=== PATIENT | male | born 1945 | race Caucasian/White ===

== ENCOUNTER 2016-03-18 08:50 | Outpatient (CLI) | payer MEDICARE, OTHER | END 2016-03-18 08:51 | disposition home or self-care (01) | DX: E78.5 Hyperlipidemia, unspecified (principal); D64.9 Anemia, unspecified; R73.9 Hyperglycemia, unspecified; Z79.899 Other long term (current) drug therapy ==

== ENCOUNTER 2016-06-21 11:55 | Emergency (ER) | payer MEDICARE, OTHER ==
[2016-06-21] MEDS ORDERED: oxyCODONE 5 MG TABLET ONE (12:14)
[2016-06-21] MEDS: oxyCODONE 5 MG TABLET PO STA (12:15)
--- NOTE | 2016-06-21 12:36 | ED Physician Documentation ---
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 denies: Neck pain Neurologic: denies: Focal weakness, Numbness (except fingrtips 2/2 neuropathy not new), Headache, Head injury Endocrine: denies: Easy bruising / bleeding PD PAST MEDICAL HISTORY - Past Medical History Cardiovascular: Hypertension, High cholesterol Respiratory: Sleep apnea, CPAP use Endocrine/Autoimmune: None GI: GERD, Colon polyps : Other HEENT: None Psych: None, Anxiety Musculoskeletal: Osteoarthritis Derm: Other - Past Surgical History Past Surgical History: Yes General: Colonoscopy Ortho: Rotator cuff repair HEENT: Cataracts Derm: Other - Present Medications Home Medications: Ambulatory Orders Medication Instructions Recorded Confirmed Simvastatin [Zocor] 20 mg PO QPM 02/17/14 06/21/16 Tamsulosin [Flomax] 0.4 mg PO DAILY 09/25/14 10/29/15 Atezolizumab [Tecentriq] 1,200 mg INJ 1-2XD 06/21/16 06/21/16 Bupropion HCl [Bupropion HCl Sr] 150 mg PO DAILY 06/21/16 06/21/16 Esomeprazole Magnesium [Nexium] 40 mg PO DAILY 06/21/16 06/21/16 Gabapentin [Gabapentin] 600 mg PO TID 06/21/16 06/21/16 Oxycodone HCl/Acetaminophen 1 each PO Q6HR PRN #15 tablet 06/21/16 [Percocet 5-325 mg Tablet] Telmisartan [Micardis] 80 mg PO DAILY 06/21/16 06/21/16 - Allergies Allergies/Adverse Reactions: Allergies Allergy/AdvReac Type Severity Reaction Status Date / Time Iodinated Contrast Media - Allergy Hives Verified 06/21/16 12:09 Oral and [Iodinated Contrast Media - IV Dye] LIVIA Inhibitors AdvReac Intermediate Cough Verified 06/21/16 12:09 Shrimp/Crustations AdvReac Severe Nausea Uncoded 06/21/16 12:09 - Social History Does the pt smoke?: No Smoking Status: Former smoker PD ED PE NORMAL - Vitals Vital signs reviewed: Yes - Neck Neck: No bony TTP - Cardiac Cardiac: RRR - Respiratory Respiratory: No respiratory distress, Clear bilaterally - Extremities Extremities: Other (no major deformity, slight ant sulcus, TTP distal clavicle, TTP lateral humerus, MSV intact) - Neuro Neuro: Alert and oriented X 3, No motor deficit, No sensory deficit Results - Vitals Vitals: Vital Signs - 24 hr 06/21/16 06/21/16 06/21/16 12:01 13:45 13:58 Temperature 36.5 C Heart Rate 91 88 87 Respiratory 20 14 14 Rate Blood Pressure 106/48 L 119/55 L O2 Saturation 94 92 95 06/21/16 06/21/16 06/21/16 14:01 14:05 14:10 Temperature Heart Rate 88 84 86 Respiratory 12 16 12 Rate Blood Pressure 94/72 105/66 112/62 O2 Saturation 92 97 96 06/21/16 06/21/16 06/21/16 14:15 14:20 14:46 Temperature 36.7 C Heart Rate 83 88 92 Respiratory 16 18 14 Rate Blood Pressure 121/57 L 118/63 122/69 O2 Saturation 96 97 97 Oxygen O2 Source Room air Oxygen Flow Rate 3 - Rads (name of study) shoulder humerus Radiology: See rad report (ant dislocation, linear calcification possible very small avulsion fx) shoulder post red Radiology: See rad report (reduced, no fx) Procedures - Reduction Body part reduced: Left, Shoulder Fracture or dislocation: Dislocation Anesthesia: Conscious sedation Shoulder reduction technique: Traction - counter tract Reduction aftercare: NV intact, Xray confirms reduction, Sling, Patient tolerated well - Procedural sedation Sedation prep: Informed consent, Time out completed, Last meal (9), PE performed , AHA 2 - mild disease Sedation medications: dilaudid, propofol, given by MD Patient status during sedation: Responds to tactile, Hypoxia (high 80s briefly) . No: Needed resp assistance, Complications Sedation recovery: Recovered uneventfully Departure - Departure Disposition: 01 Home, Self Care Clinical Impression: Shoulder dislocation Qualifiers: Encounter type: initial encounter Laterality: left Qualified Code(s): S43.005A - Unspecified dislocation of left shoulder joint, initial encounter Condition: Good Instructions: ED Dislocation Shoulder Redu, ED Sedation Procedural Discon Follow-Up: [facility] [Provider Group] Prescriptions: Oxycodone HCl/Acetaminophen [Percocet 5-325 mg Tablet] 1 each PO Q6HR PRN #15 tablet PRN Reason: Severe Pain Comments: Wear the sling except to sleep. After the first day or two recommend gentle range of motion exercises to prevent the shoulder joint from developing scar tissue and adhesions - but do not lift arm up over your head or reach behind you
[2016-06-21] MEDS ORDERED: HYDROmorphone 1 MG/ML SYRINGE ONE ×2 (12:38→13:44)
[2016-06-21] MEDS: HYDROmorphone 1 MG/ML SYRINGE IM STA (12:42)
--- NOTE | 2016-06-21 13:39 | XRAY Preliminary Report ---
Exam: XR Shoulder 3 View LT IMPRESSION: 1. Anterior dislocation of the left shoulder. 2. Small linear calcification is indeterminate for a very small avulsion acute fracture versus sequel a of old injury. [facility] SITE ID: [id number]
--- NOTE | 2016-06-21 13:41 | XRAY Preliminary Report ---
Exam: XR Humerus LT IMPRESSION: Anterior dislocation of left shoulder. No mid to distal humerus fracture. [facility] SITE ID: [id number]
--- NOTE | 2016-06-21 13:42 | XRAY Report ---
EXAM: LEFT SHOULDER RADIOGRAPHY EXAM DATE: 06/21/2016 01:29 PM. CLINICAL HISTORY: Tripped and fell. Shoulder injury and deformity COMPARISON: Chest x-ray 04/04/2015.. TECHNIQUE: 3 views. FINDINGS: Bones: There is a linear calcification projecting lateral to the bony glenoid. There is a chronic def ormity of the lateral left clavicle with associated spurring which appears unchanged. Joints: There is anterior dislocation of the humerus at the glenohumeral joint. There is chronic wide minoo, likely secondary to old trauma or surgery of the lateral clavicle. Soft tissues: Otherwise unremarkable. IMPRESSION: 1. Anterior dislocation of the left shoulder. 2. Small linear calcification is indeterminate for a very small avulsion acute fracture versus sequel a of old injury. [facility] Referring Provider Line: [phone] SITE ID: [id number]
--- NOTE | 2016-06-21 13:43 | XRAY Report ---
EXAM: LEFT HUMERUS RADIOGRAPHY EXAM DATE: 06/21/2016 01:29 PM. CLINICAL HISTORY: Fall . COMPARISON: None. TECHNIQUE: 2 views. FINDINGS: Bones: No fracture of the mid and distal humerus. There is a linear calcification lateral to the bony glenoid. Joints: There is anterior dislocation of the left shoulder. Alignment at the elbow appears satisfacto ry. Soft Tissues: Normal. No soft tissue swelling. IMPRESSION: Anterior dislocation of left shoulder. No mid to distal humerus fracture. [facility] Referring Provider Line: [phone] SITE ID: [id number]
[2016-06-21] MEDS ORDERED: PROPOFOL 200 MG/20 ML VIAL IVP ONE (13:44)
[2016-06-21] MEDS ORDERED: PROMETHAZINE 25 MG/1 ML VIAL ONE (13:44)
[2016-06-21] MEDS: HYDROmorphone 1 MG/ML SYRINGE IVP STA (13:49)
[2016-06-21] MEDS: PROMETHAZINE INJ 25 MG in SODIUM CHLORIDE 0.9% 50 ML IV STA (13:51)
[2016-06-21] MEDS: PROPOFOL 200 MG/20 ML VIAL IVP STA (13:58)
--- NOTE | 2016-06-21 14:49 | XRAY Report ---
EXAM: LEFT SHOULDER RADIOGRAPHY EXAM DATE: 06/21/2016 02:20 PM. CLINICAL HISTORY: Shoulder dislocation. Post reduction image. COMPARISON: Earlier today. TECHNIQUE: 1 views. FINDINGS: Bones: No new bony abnormality of the left shoulder on single view. Chronic changes of the acromiocla vicular joint. Joints: Satisfactory alignment on single view post reduction of left shoulder. Soft tissues: The visualized hemithorax is unremarkable. No soft tissue swelling. IMPRESSION: Satisfactory alignment of left shoulder on single view. JOSETTE Referring Provider Line: [phone] SITE ID: [id number]
[2016-06-21 15:39] VITALS: BP 118/66
== END 2016-06-21 15:38 | disposition home or self-care (01) ==
LOC: ED 11:55
DX: S43.085A Other dislocation of left shoulder joint, initial encounter (principal); W01.198A Fall on same level from slipping, tripping and stumbling with subsequent striking against other object, initial encounter; Y92.017 Garden or yard in single-family (private) house as the place of occurrence of the external cause; I10 Essential (primary) hypertension; E78.00 Pure hypercholesterolemia, unspecified; G47.30 Sleep apnea, unspecified; K21.9 Gastro-esophageal reflux disease without esophagitis; Z86.010 Personal history of colon polyps; M19.90 Unspecified osteoarthritis, unspecified site; Z87.891 Personal history of nicotine dependence
CPT/HCPCS: 23650; 96365; 96372; 99152; 99283

== ENCOUNTER 2016-07-10 10:37 | Outpatient (CLI) | payer MEDICARE, OTHER | END 2016-07-10 10:38 | disposition home or self-care (01) | DX: M19.012 Primary osteoarthritis, left shoulder (principal); M25.412 Effusion, left shoulder ==

== ENCOUNTER 2018-08-02 14:00 | Inpatient (IN) | payer MEDICARE, OTHER ==
[2018-08-02 14:28] LABS: BASOPHILS # (AUTO) 0.1 10^3/uL (0.0-0.1); BASOPHILS % (AUTO) 0.8 %; EOSINOPHILS # (AUTO) 0.1 10^3/uL (0.0-0.7); EOSINOPHILS % (AUTO) 0.9 %; HGB - HEMOGLOBIN 12.2 g/dL (14.0-18.0); LYMPHOCYTES # (AUTO) 1.4 10^3/uL (1.5-3.5); LYMPHOCYTES % (AUTO) 8.2 %; MEAN CORPUSCULAR HEMOGLOBIN 29.7 pg (27.0-31.0); MEAN CORPUSCULAR HGB CONC 32.7 g/dL (32.0-36.0); MEAN CORPUSCULAR VOLUME 90.9 fL (80.0-94.0); MEAN PLATELET VOLUME 6.6 fL (7.4-11.4); MONOCYTES # (AUTO) 1.6 10^3/uL (0.0-1.0); MONOCYTES % (AUTO) 9.9 %; NEUTROPHILS # (AUTO) 13.4 10^3/uL (1.5-6.6); NEUTROPHILS % (AUTO) 80.2 %; PLT - PLATELET COUNT 345 10^3/uL (130-450); RED BLOOD COUNT 4.09 10^6/uL (4.70-6.10); RED CELL DISTRIBUTION WIDTH 15.5 % (12.0-15.0); WHITE BLOOD COUNT 16.7 x10^3/uL (4.8-10.8)
[2018-08-02 14:42] LABS: ALBUMIN 3.9 g/dL (3.2-5.5); ALBUMIN/GLOBULIN RATIO 1.1 (1.0-2.2); BILIRUBIN,TOTAL 0.6 mg/dL (0.2-1.0); CALCIUM 9.8 mg/dL (8.5-10.3); CREATININE 2.1 mg/dL (0.6-1.2); TOTAL PROTEIN 7.5 g/dL (6.7-8.2)
[2018-08-02 14:49] LABS: BILIRUBIN,URINE NEGATIVE (NEGATIVE); GLUCOSE, URINE (UA) NEGATIVE (NEGATIVE); KETONES,URINE (UA) NEGATIVE (NEGATIVE); LEUKOCYTE ESTERASE, URINE MODERATE (NEGATIVE); NITRITE,URINE NEGATIVE (NEGATIVE); OCCULT BLOOD,URINE MODERATE (NEGATIVE); PROTEIN,URINE 100 mg/dL (NEGATIVE); UROBILINOGEN,URINE 0.2 (NORMAL) E.U./dL (NORMAL)
[2018-08-02 14:57] LABS: CLARITY,URINE CLOUDY (CLEAR)
[2018-08-02 14:58] LABS: BACTERIA,URINE Few /HPF (None Seen); SQUAMOUS EPITHELIAL CELL,UR RARE Squamous (<= Few)
[2018-08-02 15:21] LABS: PLATELET ESTIMATE, MANUAL NORMAL (130-450,000) (NORMAL); PLATELET MORPHOLOGY NORMAL APPEARANCE (NORMAL); RBC MORPHOLOGY (MULTIPLE) NORMAL APPEARANCE (NORMAL)
[2018-08-02] MEDS ORDERED: ACETAMINOPHEN 325 MG TABLET PO STA (15:22)
[2018-08-02] MEDS ORDERED: cefTRIAXone 1 GM VIAL IVP STA (15:23)
[2018-08-02] MEDS ORDERED: SODIUM CHLORIDE 0.9% 1,000 ML IV ONE ×2 (15:24)
--- NOTE | 2018-08-02 15:28 | ED Physician Documentation ---
History of Present Illness - Stated complaint Stated Complaint: MALE - Chief complaint Chief Complaint: General - History obtained from History obtained from: Patient, Family - History of Present Illness Timing: Today Pain level max: 4 Pain level now: 4 - Additonal information Additional information: fevers, burning with urination today. 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 Still on immunosuppresive therapy q 3 3weeks. Nothing makes it better or worse. Review of Systems Ten Systems: 10 systems reviewed and negative Constitutional: reports: Fever, Chills Cardiac: denies: Chest pain / pressure Respiratory: denies: Cough GI: denies: Abdominal Pain, Nausea, Vomiting, Diarrhea Skin: denies: Rash Musculoskeletal: denies: Neck pain, Back pain Neurologic: denies: Headache PD PAST MEDICAL HISTORY - Past Medical History Past Medical History: Yes Cardiovascular: Hypertension, High cholesterol Respiratory: Sleep apnea, CPAP use Neuro: None Endocrine/Autoimmune: None GI: GERD, Colon polyps : Other HEENT: None Psych: None, Anxiety Musculoskeletal: Osteoarthritis Derm: Other Other Past Medical History: bladder cancer - Past Surgical History Past Surgical History: Yes General: Colonoscopy Ortho: Rotator cuff repair HEENT: Cataracts Derm: Other - Present Medications Home Medications: Ambulatory Orders Medication Instructions Recorded Confirmed Simvastatin [Zocor] 20 mg PO QPM 02/17/14 08/02/18 Tamsulosin [Flomax] 0.4 mg PO DAILY 09/25/14 08/02/18 Atezolizumab [Tecentriq] 1,200 mg IV Q21D 06/21/16 08/02/18 Telmisartan [Micardis] 80 mg PO DAILY 06/21/16 08/02/18 buPROPion HCl [Bupropion HCl Sr] 150 mg PO BID 06/21/16 08/02/18 Albuterol Sulfate [Albuterol 2 puffs INH Q4H PRN 08/02/18 08/02/18 Sulfate Hfa] Doxycycline Hyclate 100 mg PO BIDWM 08/02/18 08/02/18 Levothyroxine Sodium [Synthroid] 200 mcg PO QDAC 08/02/18 08/02/18 Niacin [Niaspan] 500 mg PO TIDWM 08/02/18 08/02/18 Pantoprazole [Protonix] 40 mg PO QDAC 08/02/18 08/02/18 - Allergies Allergies/Adverse Reactions: Allergies Allergy/AdvReac Type Severity Reaction Status Date / Time Iodinated Contrast- Oral and Allergy Hives Verified 08/02/18 14:04 IV Dye [Iodinated Contrast Media - IV Dye] LIVIA Inhibitors AdvReac Intermediate Cough Verified 08/02/18 14:04 shellfish derived AdvReac Nausea Verified 08/02/18 16:40 - Social History Does the pt smoke?: No Smoking Status: Former smoker Does the pt drink ETOH?: Yes ETOH Use: Beer Does the pt have substance abuse?: No - Immunizations Immunizations are current?: Yes Immunizations: TDAP >10years/unknown - POLST Patient has POLST: No PD ED PE NORMAL - Vitals Vital signs reviewed: Yes - General General: Alert and oriented X 3, No acute distress, Other (ill appearing, shaking) - HEENT HEENT: Moist mucous membranes - Neck Neck: Supple, no meningeal sign - Cardiac Cardiac: RRR - Respiratory Respiratory: No respiratory distress, Clear bilaterally - Abdomen Abdomen: Soft, Non tender, Non distended - Back Back: Other (mild B CVAT) - Derm Derm: Warm and dry - Extremities Extremities: No edema - Neuro Neuro: Alert and oriented X 3, No motor deficit, No sensory deficit - Psych Psych: Normal mood, Normal affect Results - Vitals Vitals: Vital Signs - 24 hr 08/02/18 08/02/18 14:02 15:03 Temperature 37.6 C H 37.8 C H Heart Rate 132 H 132 H Respiratory 14 16 Rate Blood Pressure 181/83 H 147/91 H O2 Saturation 100 97 Oxygen O2 Source Room air - Labs Labs: Laboratory Tests 08/02/18 08/02/18 08/02/18 14:23 14:23 14:23 WBC 16.7 H RBC 4.09 L Hgb 12.2 L Hct 37.2 L MCV 90.9 MCH 29.7 MCHC 32.7 RDW 15.5 H Plt Count 345 MPV 6.6 L Neut # (Auto) 13.4 H Lymph # (Auto) 1.4 L [place] # (Auto) 1.6 H Eos # (Auto) 0.1 Baso # (Auto) 0.1 Absolute Nucleated RBC 0.00 Nucleated RBC % 0.0 Manual Slide Review Indicated WBC Morphology NORMAL APPEARANCE Platelet Estimate NORMAL (130-450,000) Platelet Morphology NORMAL APPEARANCE RBC Morph Micro Appear NORMAL APPEARANCE PT INR Sodium 138 Potassium 4.5 Chloride 100 L Carbon Dioxide 26 Anion Gap 12.0 BUN 31 H Creatinine 2.1 H Estimated GFR (MDRD) 31 L Glucose 122 H Lactic Acid 1.3 Calcium 9.8 Total Bilirubin 0.6 AST 27 ALT 27 Alkaline Phosphatase 66 Total Protein 7.5 Albumin 3.9 Globulin 3.6 Albumin/Globulin Ratio 1.1 Lipase 26 Urine Color Urine Clarity Urine pH Ur Specific [place] Urine Protein Urine Glucose (UA) Urine Ketones Urine Occult Blood Urine Nitrite Urine Bilirubin Urine Urobilinogen Ur Leukocyte Esterase Urine RBC Urine WBC Ur Squamous Epith Cells Urine Bacteria Ur Microscopic Review Urine Culture Comments 08/02/18 08/02/18 14:24 14:41 WBC RBC Hgb Hct MCV MCH MCHC RDW Plt Count MPV Neut # (Auto) Lymph # (Auto) [place] # (Auto) Eos # (Auto) Baso # (Auto) Absolute Nucleated RBC Nucleated RBC % Manual Slide Review WBC Morphology Platelet Estimate Platelet Morphology RBC Morph Micro Appear PT 12.5 INR 1.1 Sodium Potassium Chloride Carbon Dioxide Anion Gap BUN Creatinine Estimated GFR (MDRD) Glucose Lactic Acid Calcium Total Bilirubin AST ALT Alkaline Phosphatase Total Protein Albumin Globulin Albumin/Globulin Ratio Lipase Urine Color YELLOW Urine Clarity CLOUDY Urine pH 7.0 Ur Specific [place] 1.020 Urine Protein 100 H Urine Glucose (UA) NEGATIVE Urine Ketones NEGATIVE Urine Occult Blood MODERATE H Urine Nitrite NEGATIVE Urine Bilirubin NEGATIVE Urine Urobilinogen 0.2 (NORMAL) Ur Leukocyte Esterase MODERATE H Urine RBC 11-25 H Urine WBC >25 H Ur Squamous Epith Cells RARE Squamous Urine Bacteria Few Ur Microscopic Review INDICATED Urine Culture Comments INDICATED PD MEDICAL DECISION MAKING - ED course Complexity details: reviewed results, re-evaluated patient, considered differential, d/w patient, d/w family ED course: Patient with one kidney, on immunosuppressive therapy with fever and a UTI today. Has rigors in the emergency department. Lactate is normal. Blood cultures drawn. Given IV fluids. Given IV Rocephin. Discussed the case with Dr. Mancilla who accepts. Pt is ill appearing. This document was made in part using voice recognition software. While efforts are made to proofread this document, sound alike and grammatical errors may occur. Departure - Departure Disposition: 66 [facility] DC/Xfer Clinical Impression: Tachycardia, Rigors Fever Qualifiers: Fever type: unspecified Qualified Code(s): R50.9 - Fever, unspecified UTI (urinary tract infection) Qualifiers: Urinary tract infection type: acute cystitis Hematuria presence: without hematuria Qualified Code(s): N30.00 - Acute cystitis without hematuria Acute renal failure Qualifiers: Acute renal failure type: unspecified Qualified Code(s): N17.9 - Acute kidney failure, unspecified Condition: Stable Discharge Date/Time: 08/02/18 16:50
[2018-08-02] MEDS ORDERED: SODIUM CHLORIDE FLUSH 0.9% 10 ML SYRINGE IVP PRN (15:58)
[2018-08-02] MEDS ORDERED: PROCHLORPERAZINE 10 MG/2 ML VIAL IVP PRN (15:58)
[2018-08-02 16:20] LABS: INR 1.1 (0.8-1.2); PT - PROTHROMBIN TIME 12.5 secs (9.9-12.6)
[2018-08-02] MEDS ORDERED: ALBUTEROL NEB 2.5 MG/3 ML INH PRN (16:42)
[2018-08-02] MEDS: DEXTROSE 5%-0.9% NACL 1,000 ML IV SCH (17:42)
[2018-08-02] MEDS: SODIUM CHLORIDE FLUSH 0.9% 10 ML SYRINGE IVP SCH ×2 (17:43→23:30)
[2018-08-02] MEDS: DOXYCYCLINE 100 MG TABLET PO SCH (18:15)
[2018-08-02] MEDS: NIACIN ER 500 MG TABLET PO SCH (18:15)
[2018-08-02] MEDS ORDERED: SODIUM CHLORIDE 0.9% 500 ML IV ONE (18:50)
[2018-08-02] MEDS: buPROPion SR 150 MG TABLET PO SCH (20:29)
[2018-08-02] MEDS: FAMOTIDINE 20 MG TABLET PO SCH (20:29)
--- NOTE | 2018-08-02 20:31 | HISTORY & PHYSICAL EXAMINATION ---
DATE OF SERVICE: 08/02/2018 Physician: Jasmyne Mancilla MD HISTORY OF PRESENT ILLNESS: This is a 73-year-old white male with history of obesity, sleep apnea on CPAP, ex-smoker with COPD; history of cancer of the bladder and ureter, for which he had a left-sided nephrectomy and the tumor was removed. Subsequent to that, he received chemotherapy, then radiation therapy and is now on immunochemotherapy. From this, he developed hypothyroidism and bullous pemphigoid. He is on thyroid replacement and his dermatology condition is treated with doxycycline daily and also he had a prednisone burst and taper that now finished 2 weeks ago. The patient awoke this morning with urinary urgency, mild dysuria and was incontinent of urine. He then started to develop fever and chills and came to the emergency room. He was febrile here and tachycardic, and blood tests show an elevated white count and urinalysis with bacteria, and he is being admitted for sepsis with UTI. PAST MEDICAL HISTORY: Bladder and ureteral cancer, left nephrectomy, chronic kidney disease, hypertension, COPD, hypothyroidism, sleep apnea, bullous pemphigoid, elevated cholesterol and triglyceride history. ALLERGIES 1. IODINATED CONTRAST. 2. SHELLFISH. 3. LIVIA INHIBITORS. CURRENT MEDICATIONS 1. Tecentriq 1200 mg IV every 3 weeks. 2. Protonix 40 mg daily. 3. Simvastatin 20 mg every night. 4. Albuterol inhaler every 4 hours p.r.n. 5. Wellbutrin 150 mg b.i.d. (since stopping smoking) 6. Doxycycline 100 mg b.i.d. 7. Levothyroxine 200 mcg daily. 8. Niacin 500 mg t.i.d. 9. Flomax 0.4 mg daily. 10. Micardis 80 mg daily. FAMILY HISTORY: No inherited diseases. SOCIAL HISTORY: He lives with his , has rare alcohol intake, quit smoking cigarettes 2 years ago, no drug use history. REVIEW OF SYSTEMS: The patient has intermittent severe low back pain and has spondylolisthesis, according to his ; for this, he was taking Motrin 800 mg q.i.d. and was told to stop this by his urologist, to use Tylenol, which did not help, now he takes adult-dose aspirin 4-6 times a day. He had a UTI once several years ago just after the nephrectomy, but then he had a temporary Hernández catheter. There has been no recent diarrhea, change of medicines, travel outside the [place], trauma. He does visit his urologist, and at every visit, he has a cystoscopy, and this was last done approximately 4 weeks ago. Comprehensive review of systems was done, and the pertinent positives are listed, the rest are negative. PHYSICAL EXAMINATION GENERAL: Obese white male. He appears in no distress, supine in bed. VITAL SIGNS: Blood pressure initially 181/83 and with a heart rate of 132, now more recently blood pressure 128/60 with a heart rate of 129 in sinus tachycardia. He is febrile with a temperature of 39.6 centigrade, respiratory rate 18, room air saturation 93%. HEENT: Unremarkable. He is wearing glasses. Oral mucosa is moist. NECK: Without JVD at a 30-degree upright angle. CHEST: Clear, but increased AP diameter. No wheezes. HEART: Heart sounds very distant, tachycardic. ABDOMEN: Obese. Positive bowel sounds, nontender. No organomegaly. EXTREMITIES: No clubbing, cyanosis, or edema, but he has several pemphigoid lesions of his arms. NEUROLOGIC: Grossly intact. LABORATORY DATA: Electrolytes normal. BUN 31, creatinine 2.1. Normal liver tests. Normal lipase. White count 16.7 with a left shift, hemoglobin 12.2 with MCV 90, platelet count normal at 345. INR normal at 1.1. Urinalysis had a pH of 1.02, high protein, moderate occult blood, moderate leukocyte esterase, many white blood cells and few bacteria. No EKG was done. No chest x-ray was done. IMPRESSION 1. Sepsis with fever, tachycardia and elevated white count and the source appears to be urinary tract infection. 2. Urinary tract infection. 3. 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 4. Left nephrectomy. 5. [id number] kidney disease (his baseline creatinine runs 1.7-2.0). 6. Hypertension. 7. Chronic obstructive pulmonary disease without exacerbation. 8. Hypothyroidism. 9. Elevated triglycerides and cholesterol. 10. Sleep apnea on CPAP. 11. Bullous pemphigoid on daily doxycycline and recent prednisone burst and taper to off. PLAN: Admit the patient to a medical/surgical bed on telemetry because of the tachycardia. Begin IV hydration with crystalloids. Follow his electrolytes and BUN and creatinine daily. Obtain cultures of blood and urine and begin antibiotics for UTI coverage, IV ceftriaxone 1 gram daily is started. Await on identification to focus therapy and transition to oral antibiotics when appropriate. Obtain imaging of the abdomen and pelvis regarding his entire urinary tract for signs of obstruction, stone, pyelonephritis. Continue with his Flomax. Continue with his blood pressure medications. Continue with p.r.n. nebulizer, thyroid management, cholesterol and triglyceride treatment and doxycycline. Use the CPAP machine while he is here. DEEP VENOUS THROMBOSIS PROPHYLAXIS: SCDs. CODE STATUS: FULL CODE. ATTESTATION: The patient is expected to be discharged or transferred to another facility within 96 hours: Yes. cc: Jaylan Caro DO TD: 08/02/2018 18:12 MTDD
[2018-08-03] MEDS: DEXTROSE 5%-0.9% NACL 1,000 ML IV SCH (04:49)
[2018-08-03] MEDS: ACETAMINOPHEN 325 MG TABLET PO PRN ×3 (04:57→16:07)
[2018-08-03 05:26] LABS: BASOPHILS # (AUTO) 0.1 10^3/uL (0.0-0.1); BASOPHILS % (AUTO) 0.7 %; EOSINOPHILS # (AUTO) 0.1 10^3/uL (0.0-0.7); EOSINOPHILS % (AUTO) 0.3 %; HGB - HEMOGLOBIN 10.6 g/dL (14.0-18.0); LYMPHOCYTES # (AUTO) 1.6 10^3/uL (1.5-3.5); LYMPHOCYTES % (AUTO) 10.2 %; MEAN CORPUSCULAR HEMOGLOBIN 30.2 pg (27.0-31.0); MEAN CORPUSCULAR HGB CONC 32.6 g/dL (32.0-36.0); MEAN CORPUSCULAR VOLUME 92.4 fL (80.0-94.0); MEAN PLATELET VOLUME 6.8 fL (7.4-11.4); MONOCYTES # (AUTO) 1.8 10^3/uL (0.0-1.0); MONOCYTES % (AUTO) 11.1 %; NEUTROPHILS # (AUTO) 12.3 10^3/uL (1.5-6.6); NEUTROPHILS % (AUTO) 77.7 %; PLT - PLATELET COUNT 276 10^3/uL (130-450); RED BLOOD COUNT 3.51 10^6/uL (4.70-6.10); RED CELL DISTRIBUTION WIDTH 15.4 % (12.0-15.0); WHITE BLOOD COUNT 15.8 x10^3/uL (4.8-10.8)
[2018-08-03 05:34] LABS: CALCIUM 8.4 mg/dL (8.5-10.3); CREATININE 1.9 mg/dL (0.6-1.2)
[2018-08-03] MEDS ORDERED: LEVOTHYROXINE 100 MCG TABLET PO SCH (07:00)
[2018-08-03] MEDS ORDERED: cefTRIAXone 2 GM in SODIUM CHLORIDE 0.9% MINIBAG 100 ML IV SCH (09:00)
[2018-08-03] MEDS ORDERED: LOSARTAN 50 MG TABLET PO SCH (09:00)
[2018-08-03] MEDS ORDERED: ALBUTEROL NEB 2.5 MG/3 ML INH PRN (09:22)
--- NOTE | 2018-08-03 09:26 | MISCELLANEOUS PROVIDER NOTE ---
Miscellaneous Provider Note - - Note: Subjective: Patient is upset that he is getting an MRI today and was not told of this exam. Patient is scheduled for a PET scan tomorrow a.m. Patient's sees Dr. Montano who is his primary rooming house keeper oncologist at [facility]. Patient mentions fevers and chills and states that he is always had tachycardia and is currently on Synthroid. Patient otherwise states no flank pain dysuria, nausea, vomiting, diarrhea, chest pain or shortness of breath. Objective: Patient is hemodynamically stable, afebrile with a T-max of 37.8 Celsius. Blood pressure 119/57, RR 18, 95% O2 saturation room air General: Patient is alert and oriented x3 in no acute respiratory distress. HEENT: NCAT, Moist mucous membranes, pharynx clear Neck: No JVD, no bruits, no lymphadenopathy bilaterally, trachea midline, no thyromegaly. CV/lungs: Tachycardia, S1-S2 within normal limits, RRR, no murmurs, gallops, clicks, or rubs. CTA BL. Abdomen: Soft nontender nondistended positive bowel sounds all quadrants no HSM Extremities/skin: No edema, clubbing, or cyanosis. Neuro: Grossly intact Imaging studies: Reviewed Labs: Reviewed Assessment/plan: 1. Sepsis-improved, secondary to UTI/ESBL+ E. coli Bacteremia We will continue with early goal-directed therapy along with IV fluid resuscitation, Will discontinue Rocephin and placed on Merrem instead, 2 sets of blood cultures are Positive to ESBL+ E. coli. Sensitivities pending. Urine c ulture also pending however likely E. coli present. Patient's tachycardia has been variable however patient has confounding underlying conditions and medications that may drive heart rate up (I.e. patient on Albuterol prn/Synthroid/niacin). Lactic acid and WBC has down trended. Still with some fevers. Patient has a port for his chemo-immuno therapy and this is nontender however will draw a blood culture to exclude a port-cath line infection. 2. ESBL positive E. coli bacteremia secondary to UTI Will discontinue Rocephin and switch to IV Merrem. In the setting of patient's immunocompromise state as receiving immunotherapy/chemotherapy and also receiving prednisone may have caused a weakened immune status which allowed for opportunistic infection to see into bloodstream. Currently on doxycycline for patient's bullous pemphigoid. Patient does not have signs and symptoms consistent with Culberson minor and major criteria for endocarditis. Echocardiogram shows a preserved ejection fraction of 6065% with no obvious vegetations, or thrombus formation. However transesophageal echocardiogram is the gold standard to diagnose vegetations and endocarditis, repeat blood cultures drawn x3 (2 blood cultures from peripheral site and one blood culture from patient's port). 3. Urinary tract infection associated with #1 Discontinue Rocephin, urine cultures to follow. Although I suspect since sadi huff has E. coli ESBL positive bacteremia that the urine cultures will also be ESBL positive E. coli. Patient on IV Merrem now. Patient does not have an indwelling Hernández catheter. May have underlying BPH. Continue with medical management. 4. 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 Patient was scheduled to have MRI however patient will likely need consultation with Ativan, this was deferred. Patient is scheduled for PET scan on August 13. In addition patient has an infusion scheduled on 08/05 which currently is contraindicated as patient has active infection with bacteremia. In the setting of active infection we will keep off of immunotx and or chemotherapy for now. Will need to return to primary oncologist as an outpatient once patient's UTI and sepsis has resolved in order for them to reinitiate immunotherapy which patient receives every 3wks. 5. Multifactorial anemia Patient with precipitous drop in H&H (10.6 from a 12.2 g/dL) sec to sepsis/hemodilution? No evidence of upper/lower GI bleed. We will check iron studies, fecal occult blood test, patient has likely underlying anemia of ch ronic disease, check B12 and folic acid, TSH shows it to be low with normal free T4 T3 (subclinical hyperthyroidism). 6. Chronic kidney disease stage III with a history of left nephrectomy Patient's baseline runs between 1.3-2.0, continue with IV fluids, avoid nephrotoxic agents, electrolyte repletion to continue. Hold losartan for now. 7. Hypothyroidism Currently with a TSH of 0.24 with free T4 and T3 within normal limits which presents as subclinical hyperthyroid with patient on Synthroid at 200 mcg p.o. daily will decrease this to 100 mcg p.o. daily which may explain patient's tachycardia and stabilize TSH. 8. Hyperlipidemia/triglyceridemia Continue with niacin 9. Hypertension Place on hydralazine as needed, Lopressor 25 mg p.o. twice daily to help with her tachycardia. Hold losartan for now. 10. History of bullous pemphigoid Patient on daily doxycycline and recent prednisone burst . Unclear of how long patient was on prednisone, due to patient presenting with tachycardia hypertension would query on possible adrenal insufficiency. Would continue with doxycycline. 11. COPD without exacerbation We will continue with supplemental oxygenation as needed along with CPAP at night. Pt is also on albuterol nebulization as needed Continue with DVT/GI prophylaxis. CODE STATUS: Full code. Patient has indicated that he wants full resuscitative efforts. Palliative care consultation requested.
[2018-08-03] MEDS: FAMOTIDINE 20 MG TABLET PO SCH (10:24)
[2018-08-03] MEDS: NIACIN ER 500 MG TABLET PO SCH ×3 (10:24→16:07)
[2018-08-03] MEDS: TAMSULOSIN 0.4 MG CAPSULE PO SCH (10:24)
[2018-08-03] MEDS: DOXYCYCLINE 100 MG TABLET PO SCH ×2 (10:25→16:07)
[2018-08-03] MEDS: buPROPion SR 150 MG TABLET PO SCH ×2 (10:25→21:26)
[2018-08-03] MEDS ORDERED: hydrALAZINE INJ 20 MG/ML VIAL IVP PRN (10:25)
[2018-08-03] MEDS: LACTOBACILLUS RHAMNOSUS GG CAPSULE PO SCH (10:25)
[2018-08-03] MEDS: POLYETHYLENE GLYCOL 3350 17 GM PACKET PO SCH (10:28)
[2018-08-03] MEDS: MEROPENEM 1 GM in SODIUM CHLORIDE 0.9% MINIBAG 100 ML IV SCH ×2 (11:03→21:27)
[2018-08-03] MEDS: METOPROLOL TARTRATE 25 MG TABLET PO SCH ×2 (11:04→21:26)
[2018-08-03] MEDS: SODIUM CHLORIDE FLUSH 0.9% 10 ML SYRINGE IVP SCH ×2 (11:27→16:07)
[2018-08-03] MEDS ORDERED: cefTRIAXone 1 GM in SODIUM CHLORIDE 0.9% MINIBAG 100 ML IV SCH (14:00)
[2018-08-03] MEDS: SODIUM CHLORIDE 0.9% 1,000 ML IV SCH ×2 (14:53→15:30)
[2018-08-03 15:46] LABS: % IRON SATURATION 5 % (20-50); IRON 12 ug/dL (45-182); TOTAL IRON BINDING CAPACITY 255 ug/dL (250-450); TRANSFERRIN 182 mg/dL (180-329)
[2018-08-03] MEDS ORDERED: BENZOCAINE/MENTHOL LOZENGE MM PRN (16:11)
[2018-08-03 16:30] LABS: CORTISOL 16.7 ug/dL
[2018-08-03 16:43] LABS: FOLATE 17.95 ng/mL (5.90 - >24.8)
[2018-08-03] MEDS: ATORVASTATIN 10 MG TABLET PO SCH (21:26)
[2018-08-03] MEDS ORDERED: IBUPROFEN 600 MG TABLET PO PRN (21:48)
[2018-08-03] MEDS ORDERED: ACETAMINOPHEN 325 MG TABLET PO PRN (21:48)
[2018-08-04] MEDS: SODIUM CHLORIDE 0.9% 1,000 ML IV SCH ×4 (00:39→22:45)
[2018-08-04] MEDS: SODIUM CHLORIDE FLUSH 0.9% 10 ML SYRINGE IVP SCH ×3 (01:43→17:52)
[2018-08-04 06:15] LABS: BASOPHILS # (AUTO) 0.1 10^3/uL (0.0-0.1); BASOPHILS % (AUTO) 0.4 %; EOSINOPHILS % (AUTO) 0.3 %; HGB - HEMOGLOBIN 10.5 g/dL (14.0-18.0); LYMPHOCYTES # (AUTO) 1.6 10^3/uL (1.5-3.5); LYMPHOCYTES % (AUTO) 11.1 %; MEAN CORPUSCULAR HEMOGLOBIN 30.5 pg (27.0-31.0); MEAN CORPUSCULAR VOLUME 92.3 fL (80.0-94.0); MEAN PLATELET VOLUME 6.6 fL (7.4-11.4); MONOCYTES # (AUTO) 1.8 10^3/uL (0.0-1.0); MONOCYTES % (AUTO) 13.1 %; NEUTROPHILS # (AUTO) 10.6 10^3/uL (1.5-6.6); NEUTROPHILS % (AUTO) 75.1 %; PLT - PLATELET COUNT 241 10^3/uL (130-450); RED BLOOD COUNT 3.43 10^6/uL (4.70-6.10); RED CELL DISTRIBUTION WIDTH 15.7 % (12.0-15.0); WHITE BLOOD COUNT 14.1 x10^3/uL (4.8-10.8)
[2018-08-04] MEDS: LEVOTHYROXINE 100 MCG TABLET PO SCH (06:17)
[2018-08-04 06:42] LABS: CALCIUM 8.5 mg/dL (8.5-10.3)
[2018-08-04] MEDS: FAMOTIDINE 20 MG TABLET PO SCH (08:56)
[2018-08-04] MEDS: LACTOBACILLUS RHAMNOSUS GG CAPSULE PO SCH (08:56)
[2018-08-04] MEDS: TAMSULOSIN 0.4 MG CAPSULE PO SCH (08:56)
[2018-08-04] MEDS: buPROPion SR 150 MG TABLET PO SCH ×2 (08:56→20:36)
[2018-08-04] MEDS: NIACIN ER 500 MG TABLET PO SCH ×3 (08:56→16:59)
[2018-08-04] MEDS: DOXYCYCLINE 100 MG TABLET PO SCH ×2 (08:57→16:59)
[2018-08-04] MEDS: MEROPENEM 1 GM in SODIUM CHLORIDE 0.9% MINIBAG 100 ML IV SCH ×2 (08:57→20:35)
[2018-08-04] MEDS: METOPROLOL TARTRATE 25 MG TABLET PO SCH ×2 (08:57→20:39)
[2018-08-04] MEDS: POLYETHYLENE GLYCOL 3350 17 GM PACKET PO SCH (08:59)
[2018-08-04] MEDS: HYDROcod/ACETAM 5/325 MG TABLET PO PRN ×2 (11:56→17:02)
--- NOTE | 2018-08-04 13:12 | CONSULTATION NOTE ---
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 He did have a left nephrectomy with removal of the tumor of the bladder junction, and initially received chemotherapy and radiation. He up to this point in time is had a good response, with one residual lymph node. He is currently on atelzolizumab IV every three weeks.. Has been tolerating fairly well, though he has had therapy side effects of hypothyroidism, and is unclear if his skin lesions of bullous pemphigoid is as a result of his immunotherapy. These appeared in 02/2018, had seen a marine cargo specialist at [facility] with biopsy, does use doxycycline twice daily, has recently been on prednisone taper, and uses triamcinolone ointment with flares. These are quite problematic in the context that not only where they on his extremities, back, but in his nose, throat, and concerned actually about being in his intestine. His most persistent symptom burden, has actually been back pain and headache pain. His back pain is thought to be caused by spondylolisthesis. Though in retrospect it may have been his brewing infection. He had originally started on Motrin, secondary to his CKD stage III, and single kidney was told not to take Motrin. He did trial tramadol without effect, unfortunately they had been using aspirin which is as nephrotoxic as the Motrin. At this point time is been mostly bedbound, has not had any exacerbation of his pain, it does appear to be resolving either from infection or from bed rest. Patient presented acutely to [facility] on 08/02, with fever and chills, has been diagnosed with ESBL bacteremia and UTI, is getting antibiotic therapy. Palliative care is been asked to meet with patient regarding ongoing palliative care support as well as goals of care. Medical/Surgical History - Past Medical History Cardiovascular: reports: Hypertension, High cholesterol Respiratory: reports: Sleep apnea, CPAP use Neuro: None Endocrine/Autoimmune: reports: HyPOthyroidism GI: reports: GERD, Colon polyps : reports: Other (urethiliol cancer/) HEENT: reports: None Psych: reports: Anxiety Musculoskeletal: reports: Osteoarthritis, Chronic back pain Derm: reports: Other (bullous phigoid) MRSA Hx?: No Other Past Medical History: bladder cancer - Past Surgical History General: reports: Colonoscopy, Other (left sided nephrectomy) Ortho: reports: Rotator cuff repair Cardiovascular: reports: Other (portacath) HEENT: reports: Cataracts Derm: reports: Other Other past surgical history: hernia repair with complicatins of wound infection - Substance History Use: Uses substance without health or social issues: Tobacco (quit smoking two years ago) Social History - Living Situation Living arrangement: At home Living Situation: With spouse/s.o. 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 They have 3 daughters, one in [place], one in [place], one in [place]. He was in the [email or web address] for over 30 years. 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 Family History - Family History Family History: Mother: , Father: Medications/Allergies - Medications Active Medication List: Active Medications Acetaminophen (Tylenol) 650 mg PO Q6H PRN PRN Reason: Pain or Fever > 38C (100.4F) Last Admin: 08/04/18 08:57 Dose: 650 mg Hydrocodone Bitart/Acetaminophen ([place] 5/325) 1 tab PO Q4HR PRN PRN Reason: Pain 5 to 7 Last Admin: 08/04/18 11:56 Dose: 1 tab Albuterol () 2.5 mg INH RTQ4H PRN PRN Reason: Wheezing Atorvastatin Calcium (Lipitor) 10 mg PO QPM [facility] Last Admin: 08/03/18 21:26 Dose: 10 mg Bupropion HCl (Wellbutrin Sr) 150 mg PO BID [facility] Last Admin: 08/04/18 08:56 Dose: 150 mg Doxycycline Hyclate (Vibramycin) 100 mg PO BIDWM [facility] Last Admin: 08/04/18 08:57 Dose: 100 mg Famotidine (Pepcid) 20 mg PO DAILY [facility] Last Admin: 08/04/18 08:56 Dose: 20 mg Hydralazine HCl (Apresoline Inj) 10 mg IVP Q4HR PRN PRN Reason: SBP>160 Sodium Chloride (Normal Saline 0.9%) 1,000 mls @ 125 mls/hr IV .Q8H [facility] Last Admin: 08/04/18 11:50 Dose: 125 mls/hr Meropenem 1 gm/ Sodium (Chloride) 100 mls @ 200 mls/hr IV Q12H [facility] Last Infusion: 08/04/18 09:54 Dose: Infused Lactobacillus Rhamnosus (Culturelle) 1 cap PO DAILY [facility] Last Admin: 08/04/18 08:56 Dose: 1 cap Levothyroxine Sodium (Synthroid) 100 mcg PO QDAC [facility] Last Admin: 08/04/18 06:17 Dose: 100 mcg Metoprolol Tartrate (Lopressor) 25 mg PO BID [facility] Last Admin: 08/04/18 08:57 Dose: 25 mg Niacin (Niaspan) 500 mg PO TIDWM [facility] Last Admin: 08/04/18 11:50 Dose: 500 mg Polyethylene Glycol (Miralax) 17 gm PO DAILY [facility] Last Admin: 08/04/18 08:59 Dose: Not Given Prochlorperazine Edisylate (Compazine Inj) 10 mg IVP Q6HR PRN PRN Reason: Nausea / Vomiting Sodium Chloride (Normal Saline Flush 0.9%) 10 ml IVP PRN PRN PRN Reason: NEEDED PER PROVIDER ORDERS Sodium Chloride (Normal Saline Flush 0.9%) 10 ml IVP 0100,0900,1700 [facility] Last Admin: 08/04/18 08:57 Dose: Not Given Tamsulosin HCl (Flomax) 0.4 mg PO DAILY [facility] Last Admin: 08/04/18 08:56 Dose: 0.4 mg Throat Lozenges (Cepacol) 1 lozenge MM Q2HR PRN PRN Reason: Throat pain Last Admin: 08/03/18 17:28 Dose: 1 lozenge Simvastatin [Zocor] 20 mg PO QPM 02/17/14 Tamsulosin [Flomax] 0.4 mg PO DAILY 09/25/14 Atezolizumab [Tecentriq] 1,200 mg IV Q21D 06/21/16 Telmisartan [Micardis] 80 mg PO DAILY 06/21/16 buPROPion HCl [Bupropion HCl Sr] 150 mg PO BID 06/21/16 Albuterol Sulfate [Albuterol Sulfate Hfa] 2 puffs INH Q4H PRN 08/02/18 Doxycycline Hyclate 100 mg PO BIDWM 08/02/18 Levothyroxine Sodium [Synthroid] 200 mcg PO QDAC 08/02/18 Niacin [Niaspan] 500 mg PO TIDWM 08/02/18 Pantoprazole [Protonix] 40 mg PO QDAC 08/02/18 - Allergies Allergies/Adverse Reactions: Allergies Allergy/AdvReac Type Severity Reaction Status Date / Time Iodinated Contrast- Oral and Allergy Hives Verified 08/02/18 14:04 IV Dye [Iodinated Contrast Media - IV Dye] LIVIA Inhibitors AdvReac Intermediate Cough Verified 08/02/18 14:04 shellfish derived AdvReac Nausea Verified 08/02/18 16:40 Review of Systems - Constitutional Constitutional: reports: Fatigue - Ears, Nose & Throat Ears, Nose & Throat: reports: Dry mouth - Cardiovascular Cardiovascular: reports: Decr. exercise tolerance - Respiratory Respiratory: reports: SOB with exertion. denies: SOB at rest - Musculoskeletal Musculoskeletal: reports: Stiffness, Limited range of motion, Joint pain (right shoulder dislocated 2 years ago) - Integumentary Integumentary: reports: Dryness, Other (fading lesions from bullous pemphoid) - Neurological Neurological: reports: General weakness, Headache (has headache most days; took APAP without relief) - Psychiatric Psychiatric: denies: Depression, Anxiety - Endocrine Endocrine: reports: Hypothyroidism (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) - Hematologic/Lymphatic Hematologic/Lymphatic: reports: Anemia (10.5) - All Other Systems All Other Systems: reports: Reviewed and negative Physical Exam - Vital Signs Vital Signs: Vital Signs x48h Temp Pulse Resp BP BP Pulse Ox 08/04/18 08:57 123/65 08/04/18 08:00 37.3 C 101 H 18 123/65 94 08/04/18 06:14 37.4 C 95 20 129/64 - Physical Exam General Appearance: positive: No acute distress Eyes Bilateral: positive: Normal inspection ENT: positive: No signs of dehydration Neck: positive: No JVD, Trachea midline Cardiovascular: positive: Regular rate & rhythm Respiratory: positive: No respiratory distress Abdomen: positive: Soft, Obese Skin: positive: Pallor, Dryness, Other (faded lesions on arm) Extremities: positive: No pedal edema Neurologic/Psychiatric: positive: Oriented x3, Mood/affect nml, Flat affect Palliative Care - POLST Patient has POLST: No POLST Status: Full Code Pain: Pain improved, Location (lower back; has also h/a pain long standing has had negative MRI in past) Tiredness/Fatigue: Severe (7-10) Drowsiness/Sedation: Mild (1-3) Nausea: None Depression: None Anxiety: Mild (1-3) Sleep: Sleeps well (uses CPAP) Feelings of wellbeing/Perceived Quality of Life: Fair, Acceptable Performance Status: Patient previously was independent, able to drive, manage his own ADLs. Does have some fatigue related to his treatments, no concerns. - Palliative Care Discussion: With patient and regarding her journey with his cancer, they have been dealing with it since 2013. He reports he tries to stay very positive, does understand his treatment is palliative in nature. He continues to hope for the best, has been very pleased with his response. He is somewhat discouraged with his hospitalization as he did have plans. They have continued to travel, multiple cruises, he does have many interests. As far as decision-making, he leaves it up to the "MDs" to know what they are doing. And was voiced frustration with multiple players and specialists, finding a way to pull it together, most recently with their experience with his back pain. Counseling provided regarding the role of palliative care, particularly around pain and symptom management and support for serious illness. Did initiate conversation regarding advanced care planning, does have documents from the [place] they have n ot completed. We did discuss as far as priorities, to complete a D POA, though it does fall to his Sona. He wants to be a full code so a POLST is not appropriate. But we did discuss it is helpful particularly in the future for decision-making to prioritize goals of care, as it might be important in future decision making, as well as completing legal documents. Results - Lab Results Lab results reviewed: Yes Fish Bones: 08/04/18 06:00 08/04/18 06:00 Lab and Imaging Results: Lab Results x24hrs 08/04/18 08/04/18 08/04/18 Range/Units 06:00 06:00 06:00 WBC 14.1 H (4.8-10.8) x10^3/uL RBC 3.43 L (4.70-6.10) 10^6/uL Hgb 10.5 L (14.0-18.0) g/dL Hct 31.7 L (42.0-52.0) % MCV 92.3 (80.0-94.0) fL MCH 30.5 (27.0-31.0) pg MCHC 33.0 (32.0-36.0) g/dL RDW 15.7 H (12.0-15.0) % Plt Count 241 (130-450) 10^3/uL MPV 6.6 L (7.4-11.4) fL Neut # (Auto) 10.6 H (1.5-6.6) 10^3/uL Lymph # (Auto) 1.6 (1.5-3.5) 10^3/uL Frederick # (Auto) 1.8 H (0.0-1.0) 10^3/uL Eos # (Auto) 0.0 (0.0-0.7) 10^3/uL Baso # (Auto) 0.1 (0.0-0.1) 10^3/uL Absolute Nucleated RBC 0.00 x10^3/uL Nucleated RBC % 0.0 /100WBC Sodium 138 (135-145) mmol/L Potassium 3.8 (3.5-5.0) mmol/L Chloride 104 (101-111) mmol/L Carbon Dioxide 22 (21-32) mmol/L Anion Gap 12.0 (6-13) BUN 29 H (6-20) mg/dL Creatinine 2.0 H (0.6-1.2) mg/dL Estimated GFR (MDRD) 33 L (>89) Glucose 119 H (70-100) mg/dL Calcium 8.5 (8.5-10.3) mg/dL Iron (45-182) ug/dL TIBC (250-450) ug/dL % Saturation (20-50) % Transferrin (180-329) mg/dL Vitamin B12 (180-914) pg/mL Folate (5.90 - >24.8) ng/mL Cortisol ug/dL Cortisol AM Sample 20.8 ug/dL 05/28/19 05/28/19 Range/Units 05:00 05:00 WBC (4.8-10.8) x10^3/uL RBC (4.70-6.10) 10^6/uL Hgb (14.0-18.0) g/dL Hct (42.0-52.0) % MCV (80.0-94.0) fL MCH (27.0-31.0) pg MCHC (32.0-36.0) g/dL RDW (12.0-15.0) % Plt Count (130-450) 10^3/uL MPV (7.4-11.4) fL Neut # (Auto) (1.5-6.6) 10^3/uL Lymph # (Auto) (1.5-3.5) 10^3/uL Frederick # (Auto) (0.0-1.0) 10^3/uL Eos # (Auto) (0.0-0.7) 10^3/uL Baso # (Auto) (0.0-0.1) 10^3/uL Absolute Nucleated RBC x10^3/uL Nucleated RBC % /100WBC Sodium (135-145) mmol/L Potassium (3.5-5.0) mmol/L Chloride (101-111) mmol/L Carbon Dioxide (21-32) mmol/L Anion Gap (6-13) BUN (6-20) mg/dL Creatinine (0.6-1.2) mg/dL Estimated GFR (MDRD) (>89) Glucose (70-100) mg/dL Calcium (8.5-10.3) mg/dL Iron 12 L (45-182) ug/dL TIBC 255 (250-450) ug/dL % Saturation 5 L (20-50) % Transferrin 182 (180-329) mg/dL Vitamin B12 318 (180-914) pg/mL Folate 17.95 (5.90 - >24.8) ng/mL Cortisol 16.7 ug/dL Cortisol AM Sample ug/dL Impression and Recommendations - Palliative Care Impression: This is a 73-year-old gentleman who has urothelial carcinoma of the bladder/left ureter, metastatic stage IV. He is currently on immunotherapy, with good response with side effects including hypothyroidism and possible dermatologic changes. He is acutely admitted for ESBL UTI and bacteremia. Patient appropriate for palliative care support given his diagnosis and symptom burden. Recommendations/Counseling Done: 1. Acute on chronic pain. Patient has had fluctuating back pain, most recently exacerbated. May or may not be associated with his current infection. Counseling provided regarding pain management. Instructed NOT to use aspirin as the pain intervention, it is in the same category as Motrin. Given want to preserve renal function. We did discuss the use of opioids regarding pain management, patient very concerned about addiction and tramadol was not effective. We did discuss in the context of future pain management, counseling provided regarding risk of addiction, safety of use of opioids, and recommended palliative care support for ongoing symptom management particular related to pain. 2. Urothelial cancer with mets to lymph nodes. Patient continue with immunotherapy, will be on hold for now. He is scheduled for a PET scan in the future, for further treatment planning. Patient remains quite positive, is hoping for the best. Counseling provided regarding support around the psychosocial issues and concerns of their journey. 3. Advanced care planning. Initiated conversation regarding advanced care planning, including D [facility] paperwork, following up on legal and financial planning, as well as directives. Patient actually quite willing to engage in conversation regarding this, will continue to build rapport and define guidelines for future decision making. Will follow-up for outpatient referral with Dr. Caro, At this point in time patient and interested in follow- up. Will make myself available depending on their goals and needs. Time Spent: 60 minutes with greater than 50% of this done in counseling regarding pain management barriers to care, anticipatory guidance, advanced care planning and the role of palliative care as well as setting up rapport
--- NOTE | 2018-08-04 14:08 | MISCELLANEOUS PROVIDER NOTE ---
Miscellaneous Provider Note - - Note: Subjective: Patient with no acute overnight events, still having some fevers overnight, denies chest pain palpitations, maculopapular rashes, lesions to extremities. Objective: Patient is hemodynamically stable, afebrile with a T-max of 39.5, heart rate of 95, blood pressure 124/53, RR 20, 99% O2 saturation room air General: Patient is alert and oriented x3 in no acute respiratory distress. HEENT: NCAT, Moist mucous membranes, pharynx clear Neck: No JVD, no bruits, no lymphadenopathy bilaterally, trachea midline, no thyromegaly. CV/lungs: Tachycardia, S1-S2 within normal limits, RRR, no murmurs, gallops, clicks, or rubs. CTA BL. Abdomen: Soft nontender nondistended positive bowel sounds all quadrants no HSM Extremities/skin: No edema, clubbing, or cyanosis. Neuro: Grossly intact Imaging studies: Reviewed Labs: Reviewed Assessment/plan: 1. Sepsis-improved, secondary to UTI/ESBL+ E. coli Bacteremia Patient currently on Merrem, however sensitivities are out from the urine culture specimen which is likely the same ESBL E. coli found in 2 sets of blood cultures which are sensitive to Carbapenems with a MALENA<0.5 to Invanz. Patient will be a candidate for infusion therapy as an outpatient through [place] [facility] and Invanz is a preferable antimicrobial agent because it is dosed at once daily to continue this for approximately 2 weeks from the date of the first blood cultures that have been negative which is on 08/03/2018. Patient start date would be on 08/04/18 and End date 08/18/18. Echocardiogram does not show any obvious vegetations or thrombi. 3 sets of blood cultures taken on 08/03/2018 will be followed. 2. ESBL positive E. coli bacteremia secondary to UTI Sal resistant E. coli seen on urine culture. Sensitivities to carbapenem's and macrobid. Will receive at least 2 weeks worth of IV Invanz. 3. Urinary tract infection associated with #1 Will switch over to IV Invanz and continue for 2 more weeks. 4. 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 Patient was scheduled to have MRI however patient will likely need consultation with [facility], this was deferred. Patient is scheduled for PET scan on August 13. In addition patient has an infusion scheduled on 08/05 which currently is contraindicated as patient has active infection with bacteremia. In the setting of active infection we will keep off of immunotx and or chemotherapy for now. Will need to return to primary oncologist as an outpatient once patient's UTI and sepsis has resolved in order for them to reinitiate immunotherapy which patient receives every 3wks. 5. Multifactorial anemia Patient with precipitous drop in H&H (10.6 from a 12.2 g/dL) sec to sepsis/hemodilution? No evidence of upper/lower GI bleed. We will check iron studies, fecal occult blood test, patient has likely underlying anemia of chronic disease, check B12 and folic acid, TSH shows it to be low with normal free T4 T3 (subclinical hyperthyroidism). 6. Chronic kidney disease stage III with a history of left nephrectomy Patient's baseline runs between 1.3-2.0, continue with IV fluids, avoid nephrotoxic agents, electrolyte repletion to continue. Hold losartan for now. 7. Hypothyroidism Currently with a TSH of 0.24 with free T4 and T3 within normal limits which presents as subclinical hyperthyroid with patient on Synthroid at 200 mcg p.o. daily, was decreased in dosage, now on 100 mcg p.o. daily which may explain patient's tachycardia and stabilize TSH. 8. Hyperlipidemia/triglyceridemia Continue with niacin 9. Hypertension Place on hydralazine as needed, Lopressor 25 mg p.o. twice daily to help with her tachycardia. Hold losartan for now. 10. History of bullous pemphigoid Patient on daily doxycycline and recent prednisone burst . Cortisol a.m. and random were unremarkable. Would continue with doxycycline. 11. COPD without exacerbation We will continue with supplemental oxygenation as needed along with CPAP at night. Pt is also on albuterol nebulization as needed Continue with DVT/GI prophylaxis. CODE STATUS: Full code. Patient has indicated that he wants full resuscitative efforts. Palliative care consultation requested.
[2018-08-04] MEDS: ATORVASTATIN 10 MG TABLET PO SCH (20:37)
[2018-08-05] MEDS: SODIUM CHLORIDE FLUSH 0.9% 10 ML SYRINGE IVP SCH ×2 (01:10→08:22)
[2018-08-05 05:45] LABS: BASOPHILS % (AUTO) 0.3 %; EOSINOPHILS # (AUTO) 0.3 10^3/uL (0.0-0.7); EOSINOPHILS % (AUTO) 3.5 %; HGB - HEMOGLOBIN 9.5 g/dL (14.0-18.0); LYMPHOCYTES # (AUTO) 1.5 10^3/uL (1.5-3.5); LYMPHOCYTES % (AUTO) 15.4 %; MEAN CORPUSCULAR HEMOGLOBIN 30.4 pg (27.0-31.0); MEAN CORPUSCULAR HGB CONC 33.1 g/dL (32.0-36.0); MEAN CORPUSCULAR VOLUME 91.9 fL (80.0-94.0); MONOCYTES # (AUTO) 1.5 10^3/uL (0.0-1.0); MONOCYTES % (AUTO) 15.4 %; NEUTROPHILS # (AUTO) 6.5 10^3/uL (1.5-6.6); NEUTROPHILS % (AUTO) 65.4 %; PLT - PLATELET COUNT 224 10^3/uL (130-450); RED BLOOD COUNT 3.14 10^6/uL (4.70-6.10); RED CELL DISTRIBUTION WIDTH 15.1 % (12.0-15.0)
[2018-08-05 05:48] LABS: CALCIUM 8.2 mg/dL (8.5-10.3); CREATININE 1.9 mg/dL (0.6-1.2)
[2018-08-05] MEDS: SODIUM CHLORIDE 0.9% 1,000 ML IV SCH (06:20)
[2018-08-05] MEDS: LEVOTHYROXINE 100 MCG TABLET PO SCH (06:34)
--- NOTE | 2018-08-05 07:31 | Discharge Plan ---
Discharge Plan Disposition: Home, Self Care Condition: Good Prescriptions: HYDROcod/ACETAM 5/325 [[place] 5/325] 1 tab PO Q4HR PRN #40 tablet PRN Reason: Pain 5 to 7 Ertapenem [INVanz] 1 gm IV Q24H #14 vial Lactobacillus Rhamnosus GG [Culturelle] 1 cap PO DAILY #30 capsule Levothyroxine [Synthroid] 100 mcg PO QDAC #30 tablet Diet: Regular Activity Restrictions: No Restrictions Shower Restrictions: No Driving Restrictions: No Instruction Topics: Sepsis, E Coli Infec Additional Instructions or Follow Up instructions: You were admitted for a urinary tract infection which complicated itself and seeded into your bloodstream creating a E. coli that was resistant to many antibiotics. As a result you had symptoms of fever, weakness, and other manifestations of E. coli sepsis. You are currently on an IV antibiotic that will be administered through your med port and this will be continued for an additional 2 weeks. Your blood cultures that were drawn on 08/03 are showing signs of clearance of the infection. He will continue to have some low-grade fevers meanwhile your body tries to heal and clear out the infection. In the meantime we will continue with your scheduled home medications with the dosages adjusted for your Synthroid that you take for your hypothyroidism. Your TSH was low which meant that you were taking a little bit higher doses of Synthroid so therefore the Synthroid dose was reduced to 100 mcg daily now. In addition you will return taking your blood pressure medications and will be off of anything that would cause damage to your 1 existing kidney as you have chronic kidney disease stage III. In addition, you will complete your doxycycline dose that has been prescribed by the men's basketball coach for your bullous pemphigoid that you acquired from the effects of the immunotherapy. You will be off the immune no therapy or chemotherapy for that matter for your urothelial cancer noma until you have finished your completion of IV antibiotics with an end date of 08/18. Palliative care services have been consulted on your behalf to see if they can be of assistance with further goals of care to be addressed in terms of pain, provider burden, and all the psychosocial dynamics that may be involved with dealing with cancer treatment and the side effects as well as living with cancer. He will return to your [place] [facility] [place] PET scan done August 13 of this year along with reassessment of when immunotherapy will be restarted after you finish IV anti biotics. No Smoking: If you smoke, Please STOP! Call for help. Follow-up with: Jaylan Caro DO [Primary Care Provider] - 2 Weeks (Return to PCP in 1 or 2 weeks)
--- NOTE | 2018-08-05 07:44 | DISCHARGE SUMMARY ---
"Discharge Summary Admit Date: 08/02/18 Discharge Date: 08/05/18 Discharging Provider: Dr. Negron Primary Care Provider: Ines Caro Code Status: Attempt Resuscitation Condition at Discharge: Good Discharge Disposition: 01 Home, Self Care - DIAGNOSES Admission Diagnoses: 1. Sepsis secondary to UTI 2. UTI 3. 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 History of left nephrectomy with chronic kidney disease stage III 5. Hypertension 6. COPD without exacerbation 7. Hypothyroidism 8. Mixed hyperlipidemia 9. Sleep apnea on CPAP 10. Bullous pemphigoid Discharge Diagnoses with Status of Each Condition: 1. Sepsis-improved, secondary to UTI/ESBL+ E. coli Bacteremia, Resolving 2. ESBL positive E. coli bacteremia secondary to UTI, Resolving 3. Urinary tract infection associated with #1,Resolving 4. 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 Multifactorial anemi, Stable 6. Bullous pemphigoid on doxycycline, Stable 6. Chronic kidney disease stage III with a history of left nephrectomy, Stable 7. Hypothyroidism, Subclinical hyperthyroidism, stable 8. Mixed hyperlipidemia,Stable 9. Hypertension, Stable 10. History of bullous pemphigoid, Stable 11. COPD without exacerbation, Stable 12. Sleep apnea on CPAP, stable 13. History of left nephrectomy with chronic kidney disease stage III, Stable - HPI History of Present Illness: Is a 73-year-old white male with history of obesity, sleep apnea on CPAP, ex- smoker with COPD; history of cancer of the bladder and ureter, for which he had a left-sided nephrectomy and the tumor was removed. Subsequent to that, he received chemotherapy, then radiation therapy and is now on immunotherapy for which he receives every 3 weeks. Patient developed a bullous pemphigoid as a result of chemotherapy. As well as developing hypothyroidism for which she had to be placed on Synthroid. Patient was also placed on doxycycline daily and also had prednisone burst and taper that now finished 2 weeks prior to admiss ion. The patient woke up on the day of admission with urinary urgency, mild dysuria and was incontinent of urine. He then started to be to develop fevers, Rigors and chills and came to the emergency department for further evaluation management treatment. In the emergency department he was febrile, tachycardic and blood test showed an elevated white count along with urinalysis showing pyuria that reflected UTI and clinical sepsis. 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 He did have a left nephrectomy with removal of the tumor of the bladder junction, and initially received chemo therapy and radiation. He up to this point in time is had a good response, with one residual lymph node. He is currently on atelzolizumab IV every three weeks.. Has been tolerating fairly well, though he has had therapy side effects of hypothyroidism, and is unclear if his skin lesions of bullous pemphigoid is as a result of his immunotherapy. These appeared in 02/2018, had seen a floor broker at [facility] with biopsy, does use doxycycline twice daily, has recently been on prednisone taper, and uses triamcinolone ointment with flares. These are quite problematic in the context that not only where they on his extremities, back, but in his nose, throat, and concerned ac tually about being in his intestine. His most persistent symptom burden, has actually been back pain and headache pain. His back pain is thought to be caused by spondylolisthesis. Though in retrospect it may have been his brewing infection. He had originally started on Motrin, secondary to his CKD stage III, and single kidney was told not to take Motrin. He did trial tramadol without effect, unfortunately they had been using aspirin which is as nephrotoxic as the Motrin. At this point time is been mostly bedbound, has not had any exacerbation of his pain, it does appear to be resolving either from infection or from bed rest. Patient presented [facility] to [facility] on 08/[facility], with fever and chills, has been diagnosed with ESBL bacteremia and UTI, is getting antibiotic therapy. Patient initially started on empiric IV antibiotics with Rocephin and was found to have ESBL positive E. coli in 2 out of 2 blood cultures which was randall resistant and sensitive to carbapenems and Macrobid. Patient subsequently transitioned over to IV Merrem and continued until 3 more sets of blood cultures were obtained on 08/03 (2 from med port and one from peripheral site). These blood cultures were negative growth to date after 1 day. Patient had low-grade fevers throughout the interim. Tylenol was administered. NSAIDs were avoided. Patient with low blood pressures as a result of metoprolol being administered as patient was having tachycardia which may or may not of been related to subclinical hyperthyroidism for which Synthroid was adjusted 200 mcg daily. Palliative care is been asked to meet with patient regarding ongoing palliative care support as well as goals of care. Patient met with our palliative care nurse practitioner who addressed goals of care, pain control, and ongoing pal liative care support as it relates to patient's cancer treatment and outpatient follow-ups. Patient had an echocardiogram which showed no overt structural heart disease, vegetations or thrombi formations. Patient will continue with IV antibiotics with IV Invanz 1 g IV daily via med port which was accessed on this admission and catheter was exchanged, to finish treatment for a total of 2 weeks with an end date of 08/18/2018. Patient to return to PCP in 1 or 2 weeks for reevaluation of medical conditions. Also to return to primary oncologist Dr. Reilly at [facility]. Patient to hold off on immune O chemotherapy for now. Patient instructed on post hospital discharge follow-up education and counseling given - ALLERGIES Allergies/Adverse Reactions: Allergies Allergy/AdvReac Type Severity Reaction Status Date / Time Iodinated Contrast- Oral and Allergy Hives Verified 08/02/18 14:04 IV Dye [Iodinated Contrast Media - IV Dye] LIVIA Inhibitors AdvReac Intermediate Cough Verified 08/02/18 14:04 shellfish derived AdvReac Nausea Verified 08/02/18 16:40 - MEDICATIONS Home Medications: Ambulatory Orders Medication Instructions Recorded Confirmed Simvastatin [Zocor] 20 mg PO QPM 02/17/14 08/02/18 Tamsulosin [Flomax] 0.4 mg PO DAILY 09/25/14 08/02/18 Telmisartan [Micardis] 80 mg PO DAILY 06/21/16 08/02/18 buPROPion HCl [Bupropion HCl Sr] 150 mg PO BID 06/21/16 08/02/18 Albuterol Sulfate [Albuterol 2 puffs INH Q4H PRN 08/02/18 08/02/18 Sulfate Hfa] Doxycycline Hyclate 100 mg PO BIDWM 08/02/18 08/02/18 Niacin [Niaspan] 500 mg PO TIDWM 08/02/18 08/02/18 Pantoprazole [Protonix] 40 mg PO QDAC 08/02/18 08/02/18 Ertapenem [INVanz] 1 gm IV Q24H #14 vial 08/05/18 HYDROcod/ACETAM 5/325 [[place] 5/325] 1 tab PO Q4HR PRN #40 tablet 08/05/18 Lactobacillus Rhamnosus GG 1 cap PO DAILY #30 capsule 08/05/18 [Culturelle] Levothyroxine [Synthroid] 100 mcg PO QDAC #30 tablet 08/05/18 - PHYSICAL EXAM AT DISCHARGE General Appearance: positive: No acute distress, Alert Eyes Bilateral: positive: Normal inspection, PERRL, EOMI ENT: positive: ENT inspection nml, Pharynx nml, No signs of dehydration Neck: positive: Nml inspection, Thyroid nml, No JVD. negative: Carotid bruit, Swelling/bruising Respiratory: positive: Chest non-tender, No respiratory distress, Breath sounds nml. negative: Wheezes, Rales Cardiovascular: positive: Regular rate & rhythm, No murmur, No gallop Peripheral Pulses: positive: 2+ Abdomen: positive: Non-tender, No organomegaly, Nml bowel sounds, No distention. negative: Tenderness Back: positive: Nml inspection Skin: positive: Color nml, No rash, Warm Extremities: positive: Non-tender, Full ROM, Nml appearance Neurologic/Psychiatric: positive: Oriented x3, CN's nml (2-12) - LABS Result Diagrams: 08/05/18 05:00 08/05/18 05:00 - SEPSIS Current Stage of Sepsis: Sepsis Possible source of Sepsis: Genitourinary Confirmed Source and Organism (if known) of Sepsis: Randall resistant ESBL positive E. coli found in urine culture and 2 out of 2 blood cultures - QUALITY (Female Hip Fx Only) Was patient sent home on osteoporosis medication?: No - FOLLOW UP Follow Up: Follow-up with PCP Ines Caro in 1 or 2 weeks. Follow-up with Dr. Reilly primary oncologist at [facility] in 2 to 3 weeks. - TIME SPENT Time Spent in Discharge (Minutes): 30"
[2018-08-05] MEDS: buPROPion SR 150 MG TABLET PO SCH (08:18)
[2018-08-05] MEDS: FAMOTIDINE 20 MG TABLET PO SCH (08:19)
[2018-08-05] MEDS: TAMSULOSIN 0.4 MG CAPSULE PO SCH (08:19)
[2018-08-05] MEDS: LACTOBACILLUS RHAMNOSUS GG CAPSULE PO SCH (08:19)
[2018-08-05] MEDS: DOXYCYCLINE 100 MG TABLET PO SCH (08:19)
[2018-08-05] MEDS: NIACIN ER 500 MG TABLET PO SCH ×2 (08:20→12:25)
[2018-08-05] MEDS: MEROPENEM 1 GM in SODIUM CHLORIDE 0.9% MINIBAG 100 ML IV SCH (08:21)
[2018-08-05] MEDS: POLYETHYLENE GLYCOL 3350 17 GM PACKET PO SCH (08:22)
[2018-08-05 08:27] VITALS: BP 124/66
== END 2018-08-05 13:01 | disposition home or self-care (01) | DRG 872 ==
LOC: ED 14:00 → MS2 15:51 → UNDODISIN 08-05 13:01
PROVIDERS: ADMIT Internal Medicine; ATTEND Family Medicine
DX: N30.00 Acute cystitis without hematuria (principal); A41.51 Sepsis due to Escherichia coli [E. coli]; I10 Essential (primary) hypertension; E78.00 Pure hypercholesterolemia, unspecified; N39.0 Urinary tract infection, site not specified; L00-L99 Diseases of the skin and subcutaneous tissue; C77.9 Secondary and unspecified malignant neoplasm of lymph node, unspecified; N17.9 Acute kidney failure, unspecified; C67.6 Malignant neoplasm of ureteric orifice; G47.30 Sleep apnea, unspecified; Z85.51 Personal history of malignant neoplasm of bladder; I12.9 Hypertensive chronic kidney disease with stage 1 through stage 4 chronic kidney disease, or unspecified chronic kidney disease; N18.3 Chronic kidney disease, stage 3 (moderate); E78.2 Mixed hyperlipidemia; J44.9 Chronic obstructive pulmonary disease, unspecified; K21.9 Gastro-esophageal reflux disease without esophagitis; F41.9 Anxiety disorder, unspecified; E66.9 Obesity, unspecified; Z68.34 Body mass index [BMI] 34.0-34.9, adult; D63.8 Anemia in other chronic diseases classified elsewhere; E03.2 Hypothyroidism due to medicaments and other exogenous substances; T45.1X5A Adverse effect of antineoplastic and immunosuppressive drugs, initial encounter; I95.2 Hypotension due to drugs; T44.7X5A Adverse effect of beta-adrenoreceptor antagonists, initial encounter; Y92.230 Patient room in hospital as the place of occurrence of the external cause; R00.0 Tachycardia, unspecified; G89.29 Other chronic pain; M43.10 Spondylolisthesis, site unspecified; R51 Headache; Z51.5 Encounter for palliative care; Z74.01 Bed confinement status; Z90.5 Acquired absence of kidney; Z79.2 Long term (current) use of antibiotics; Z79.82 Long term (current) use of aspirin; Z79.51 Long term (current) use of inhaled steroids; Z79.899 Other long term (current) drug therapy; Z87.891 Personal history of nicotine dependence; Z92.21 Personal history of antineoplastic chemotherapy; Z92.3 Personal history of irradiation
CPT/HCPCS: 36415; 80048; 80053; 81001; 82533; 82607; 82746; 83540; 83605; 83690; 84439; 84443; 84466; 84481; 85025; 85610; 87040; 87077; 87086; 87181; 93306; 96361; 96374; 99222; 99283; 99285; A9270; J2185; 81003

== ENCOUNTER 2018-10-25 11:24 | Emergency (ER) | payer MEDICARE, OTHER ==
[2018-10-25 11:36] VITALS: BP 142/79
--- NOTE | 2018-10-25 13:11 | XRAY Report ---
Reason: fall. pain. limited rom Procedure Date: 10/25/2018 Accession Number: [id number] / [id number] Procedure: XR - Shoulder 3 View RT CPT Code: FULL RESULT: EXAM: RIGHT SHOULDER RADIOGRAPHY 3 VIEWS EXAM DATE: 10/25/2018. CLINICAL HISTORY: Pain and limited range of motion. Fell. COMPARISON: None. TECHNIQUE: AP, Grashey and scapular Y views. FINDINGS: Bones: Normal. No fracture or bone lesion. Joints: No subluxation. Glenohumeral joint appears normal. Narrowing and spurring of the acromioclavicular joint. Soft tissues: No calcifications. Visualized right lung is clear. Partially visualized is a PowerPort on the right. IMPRESSION: No fracture or dislocation. Mild degenerative changes of the acromioclavicular joint. RADIA
--- NOTE | 2018-10-25 13:15 | XRAY Report ---
Reason: fall pain with deep inspiration Procedure Date: 10/25/2018 Accession Number: [id number] / [id number] Procedure: XR - Ribs w/PA Chest RT CPT Code: FULL RESULT: EXAM: RIGHT RIB RADIOGRAPHY 3 VIEWS EXAM DATE: 10/25/2018. CLINICAL HISTORY: Fell. Pain with deep inspiration. COMPARISON: PA and lateral chest on 02/14/2014. TECHNIQUE: PA view of the chest and anterior and posterior oblique views of the right ribs. Metal marker placed adjacent to the lower lateral right ribs, below the lateral right 11th rib. FINDINGS: Bones: No fracture or other acute osseous abnormality. Lungs: Normal vasculature. Small linear opacity in the left lateral costophrenic angle. The lungs are otherwise clear. No pleural fluid or pneumothorax. Mediastinum: Normal cardiac and mediastinal contours. Right power port in place, distal end of the catheter in the mid superior vena cava. IMPRESSION: Normal examination of the right ribs. No hemothorax or pneumothorax. Small focus of diskoid atelectasis or scar in the left lateral costal phrenic angle. The lungs are otherwise clear. Right power port in place, distal end of the catheter in the mid superior vena cava. RADIA
--- NOTE | 2018-10-25 13:20 | ED Physician Documentation ---
History of Present Illness - Stated complaint Stated Complaint: SHOULDER INJURY - Chief complaint Chief Complaint: Trauma Ext - Additonal information Additional information: This is a 73-year-old male with history of hypertension, CKD, who presents with right shoulder and right rib pain after fall yesterday. Patient was going up the stairs and he caught his toe on a stair yesterday landing on his right side. He then fell again by catching his foot on another stair. He had pain over his right ribs which is mild, denies dyspnea. His shoulder on the right side is what hurts the most, is been unable to extend his shoulder past 90 degrees. He denies any weakness or numbness in the hand. He had a rotator cuff repair on the left side, but has not had issues with the right shoulder previously. He denies any deformity, he does not think it is dislocated as he has had that issue previously in the left side. No head injury. Review of Systems Constitutional: denies: Fever Cardiac: denies: Chest pain / pressure Respiratory: denies: Dyspnea GI: denies: Abdominal Pain Musculoskeletal: reports: Extremity pain PD PAST MEDICAL HISTORY - Past Medical History Past Medical History: Yes Cardiovascular: Hypertension, High cholesterol Respiratory: Sleep apnea, CPAP use Neuro: None Endocrine/Autoimmune: HyPOthyroidism GI: GERD, Colon polyps : Other HEENT: None Psych: Anxiety Musculoskeletal: Osteoarthritis, Chronic back pain Derm: Other - Past Surgical History Past Surgical History: Yes General: Colonoscopy, Other Ortho: Rotator cuff repair Cardiovascular: Other HEENT: Cataracts Derm: Other - Present Medications Home Medications: Ambulatory Orders Medication Instructions Recorded Confirmed Simvastatin [Zocor] 20 mg PO QPM 02/17/14 08/06/18 Tamsulosin [Flomax] 0.4 mg PO DAILY 09/25/14 08/06/18 Telmisartan [Micardis] 80 mg PO DAILY 06/21/16 08/06/18 buPROPion HCl [Bupropion HCl Sr] 150 mg PO BID 06/21/16 08/06/18 Albuterol Sulfate [Albuterol 2 puffs INH Q4H PRN 08/02/18 08/06/18 Sulfate Hfa] Doxycycline Hyclate 100 mg PO BIDWM 08/02/18 08/06/18 Niacin [Niaspan] 500 mg PO TIDWM 08/02/18 08/06/18 Pantoprazole [Protonix] 40 mg PO QDAC 08/02/18 08/06/18 Ertapenem [INVanz] 1 gm IV Q24H #14 vial 08/05/18 08/06/18 HYDROcod/ACETAM 5/325 [[place] 5/325] 1 tab PO Q4HR PRN #40 tablet 08/05/18 08/06/18 Lactobacillus Rhamnosus GG 1 cap PO DAILY #30 capsule 08/05/18 08/06/18 [Culturelle] Levothyroxine [Synthroid] 100 mcg PO QDAC #30 tablet 08/05/18 08/06/18 Atezolizumab [Tecentriq] 1,200 mg IV Q21D 08/06/18 08/06/18 Clobetasol 0.05% Oint [Temovate 30 applic TOP DAILY PRN 08/06/18 08/06/18 0.05% Oint] Acetaminophen 650 mg PO Q6HR #30 tablet 10/25/18 Cyclobenzaprine [Flexeril] 10 mg PO TID PRN #20 tablet 10/25/18 - Allergies Allergies/Adverse Reactions: Allergies Allergy/AdvReac Type Severity Reaction Status Date / Time Iodinated Contrast Media Allergy Hives Verified 10/25/18 11:36 [Iodinated Contrast Media - IV Dye] LIVIA Inhibitors AdvReac Intermediate Cough Verified 10/25/18 11:36 shellfish derived AdvReac Nausea Verified 10/25/18 11:36 - Social History Does the pt smoke?: No Smoking Status: Never smoker Does the pt drink ETOH?: Yes Does the pt have substance abuse?: No - Immunizations Immunizations are current?: Yes Immunizations: TDAP >10years/unknown - POLST Patient has POLST: No PD ED PE NORMAL - Vitals Vital signs reviewed: Yes - General General: Alert and oriented X 3, No acute distress - HEENT HEENT: PERRL - Neck Neck: Supple, no meningeal sign - Cardiac Cardiac: RRR - Respiratory Respiratory: Clear bilaterally, Other (Mild tenderness over the right lateral anterior lower ribs) - Abdomen Abdomen: Non distended - Derm Derm: Warm and dry - Extremities Extremities: Other (Arms are symmetric bilaterally. There is no significant edema or deformity of the right shoulder. There is tenderness palpation more over the anterior shoulder in the area of the supraspinatus. His]Forward flexion of the shoulder is limited to just under 90 degrees. He has giveaway with empty can supraspinatus testing. He also has some Pain with external rotation of his right shoulder. Distal pulses are intact, sensation to light touch is intact over distribution of the axillary as well as Radial, ulnar, and median nerves. Staff Development Educator strength and finger abduction are normal) - Neuro Neuro: Alert and oriented X 3 - Psych Psych: Normal mood, Normal affect Results - Vitals Vitals: Vital Signs - 24 hr 10/25/18 11:32 Temperature 36.0 C L Heart Rate 60 Respiratory 16 Rate Blood Pressure 142/79 H O2 Saturation 100 Oxygen O2 Source Room air PD MEDICAL DECISION MAKING - ED course Complexity details: considered differential (Rotator cuff tear, fracture, dislocation, strain, sprain, contusion.) ED course: Patient presents with right shoulder pain and right rib pain after falls yesterday. His falls appear to be mechanical, he is well-appearing with unremarkable neurologic exam. He has mild rib tenderness, x-rays of the rib and chest are unremarkable, he likely has a rib contusion, which requires supportive care. Regarding his shoulder, he does have limited forward flexion and I think he likely has a rotator cuff tear. His x-rays of his shoulder show no osseous abnormality, he does not clinically or radiographically have signs of dislocation. Discussed supportive care, gentle range of motion exercises, Tylenol and ice, and follow-up with his primary care provider. If he has continued symptoms or weakness of the arm, he will likely need orthopedic referral. Departure - Departure Disposition: 01 Home, Self Care Clinical Impression: Shoulder injury Qualifiers: Encounter type: initial encounter Laterality: right Qualified Code(s): S49.91XA - Unspecified injury of right shoulder and upper arm, initial encounter Condition: Stable Instructions: Rotator Cuff Injury Follow-Up: Jaylan Caro DO [Primary Care Provider] - Within 1 week (For follow up on shoulder injury) Prescriptions: Acetaminophen 650 mg PO Q6HR #30 tablet Cyclobenzaprine [Flexeril] 10 mg PO TID PRN #20 tablet PRN Reason: Spasms Comments: You were seen today for shoulder and rib pain. We do not see signs of fractures in her shoulder or your ribs. You likely have a contusion/bruise of your ribs, you may use ice and Tylenol for this. You likely have a tear of the rotator cuff in your right shoulder. You may use ice, ibuprofen, and Flexeril if needed for breakthrough pain. Please follow-up with your primary care provider, if you are having continued shoulder pain you may need further work-up and referral to a sports medicine or orthopedist. Avoid lifting anything over 5 lbs with your right arm until follow up.
== END 2018-10-25 14:00 | disposition home or self-care (01) ==
LOC: ED 11:24
DX: S49.91XA Unspecified injury of right shoulder and upper arm, initial encounter (principal); R07.81 Pleurodynia; W10.9XXA Fall (on) (from) unspecified stairs and steps, initial encounter; Y93.01 Activity, walking, marching and hiking; I12.9 Hypertensive chronic kidney disease with stage 1 through stage 4 chronic kidney disease, or unspecified chronic kidney disease; N18.9 Chronic kidney disease, unspecified
CPT/HCPCS: 99282; 99284

== ENCOUNTER 2019-02-28 10:00 | Outpatient (CLI) | payer MEDICARE, OTHER | END 2019-02-28 23:59 | disposition home or self-care (01) | LOC: LAB.R 10:00 | PROVIDERS: ATTEND Family Medicine | DX: R30.0 Dysuria (principal) | CPT/HCPCS: 87086 ==

== ENCOUNTER 2019-03-03 14:05 | Outpatient (CLI) | payer MEDICARE, OTHER ==
--- NOTE | 2019-03-03 16:15 | MRI Report ---
Reason: MASS OF LT SHOULDER JOINT,METASTATIC UROTHELIAL CA Procedure Date: 03/03/2019 Accession Number: [id number] / [id number] Procedure: MRI - Shoulder LT W/O CPT Code: Final Report FULL RESULT: EXAM: LEFT SHOULDER MRI WITHOUT CONTRAST EXAM DATE: 03/03/2019 02:54 PM. CLINICAL HISTORY: Mass of left shoulder joint, metastatic urothelial cancer. COMPARISON: SHOULDER LT W/O 07/10/2016 11:00 AM. SHOULDER 3 VIEW RT 10/25/2018 12:25 PM. TECHNIQUE: Multiplanar, multisequence T1-weighted and fluid-sensitive sequences of the shoulder without contrast. Other: None. FINDINGS: Acromioclavicular Region: The acromion is type II. Moderate osteoarthritis of the acromioclavicular joint without interval change. The coracoacromial and coracoclavicular ligaments are intact. No subacromial/subdeltoid bursal fluid. Glenohumeral Region: Superior subluxation of the humerus head. Moderate quantity of joint fluid. Mild chondromalacia. The glenohumeral ligaments and joint capsule are unremarkable. Bone Marrow: Degenerative cysts at the greater tuberosity, largest measuring 6 mm. Labrum: Anterosuperior labrum tear. Musculature/Rotator Cuff: Complete tear at the superior aspect of the subscapularis tendon and partial tear at the undersurface distal inferior subscapularis tendon without change as compared to the MRI 07/10/2016. Complete tear of the supraspinous tendon with tendon retraction to the superior glenohumeral joint with complete uncovering of the superior humerus head. Transverse supraspinatus tendon tear 3.6 cm. Complete tear is again seen of the infraspinatus tendon with tendon retraction. Teres minor tendon is intact. Severe atrophy of the infraspinatus and subscapularis muscles. Moderate atrophy of the supraspinous muscle. Biceps Tendon: Complete tear at the proximal biceps tendon with tendon retraction. Other: Subcutaneous cyst at the superior shoulder 4.6 cm in transverse dimension, 1 cm in thickness and 3.1 cm in AP dimension (image 8 series 701 and image 16 series 601) which has developed since the MRI left shoulder 07/10/2016. IMPRESSION: 1. Severe atrophy of the subscapularis and infraspinous muscles and moderate atrophy of the supraspinatus muscle with progression of muscle atrophy as compared to the MRI 07/10/2016. 2. Complete tear with retraction of the supraspinous tendon, complete tear with retraction of the infraspinatus tendon and partial tear of the subscapularis tendon without interval change as compared to the MRI left shoulder 07/10/2016. 3. Complete tear with retraction of the biceps tendon. 4. Anterior-superior glenoid labrum tear. 5. Chronic rotator cuff arthropathy with superior subluxation of the humerus head and moderate arthrosis of the glenohumeral joint. 6. Superior shoulder subcutaneous cyst 4.6 cm in transverse dimension, 3.1 cm in AP dimension and 1 cm in thickness which is new as compared to the MRI left shoulder 07/10/2016. 7. Examination is compromised secondary to motion artifact. RADIA
== END 2019-03-03 14:06 | disposition home or self-care (01) ==
LOC: DI 14:05
PROVIDERS: ATTEND Family Medicine
DX: M75.102 Unspecified rotator cuff tear or rupture of left shoulder, not specified as traumatic (principal); M62.512 Muscle wasting and atrophy, not elsewhere classified, left shoulder; S46.212A Strain of muscle, fascia and tendon of other parts of biceps, left arm, initial encounter; S43.432A Superior glenoid labrum lesion of left shoulder, initial encounter; R59.0 Localized enlarged lymph nodes; L72.9 Follicular cyst of the skin and subcutaneous tissue, unspecified; C68.9 Malignant neoplasm of urinary organ, unspecified

== ENCOUNTER 2019-03-24 14:35 | Outpatient (CLI) | payer MEDICARE, OTHER ==
--- NOTE | 2019-03-24 17:28 | Ultrasound Report ---
Reason: LEFT LEG PAIN, METS UROTHELIAL CA Procedure Date: 03/24/2019 Accession Number: [id number] / [id number] Procedure: US - Duplex Ext Veins Left CPT Code: Addended Final Report FULL RESULT: EXAM: LEFT LOWER EXTREMITY VENOUS ULTRASOUND EXAM DATE: 03/24/2019 05:10 PM. CLINICAL HISTORY: Left leg pain, metastatic urothelial cancer. COMPARISON: None. TECHNIQUE: Real-time sonographic vascular imaging was performed by the mains and service supervisor through the lower extremity utilizing both color-flow and Doppler spectral analysis. Multiple outside industrial sales representative static images were saved for review. FINDINGS: Common Femoral Vein (CFV): Normal. CFV-GSV Junction: Normal. Profunda Femoral Vein (PFV): Normal. Femoral Vein (FV) Prox: Normal. Femoral Vein (FV) Mid: Normal. Femoral Vein (FV) Dist: Normal. Popliteal Vein: Normal. Posterior Tibial Veins: Limited visualization. Given the limitations, no thrombus identified. Peroneal Veins: Limited visualization. Given the limitations, no thrombus identified. Contralateral Side CFV: Normal. Other: Technically limited study due to significant patient motion. No focal abnormality at the area of the anterior left leg soft tissue pain. IMPRESSION: 1. Suboptimal visualization of posterior tibial and peroneal veins. 2. Given the limitations, no evidence for deep venous thrombosis. RADIA The call report notification system was initiated by Dr. Radha Day at 05:20 PM on 03/24/2019. ADDENDUM: 03/24/19 17:39 The above call report findings were discussed with Dr. Mancia by Dr. Radha Day at 05:39 PM on 03/24/2019.
== END 2019-03-24 14:36 | disposition home or self-care (01) ==
LOC: DI 14:35
PROVIDERS: ATTEND Family Medicine
DX: M79.605 Pain in left leg (principal); C68.9 Malignant neoplasm of urinary organ, unspecified

== ENCOUNTER 2019-03-26 08:25 | Emergency (ER) | payer MEDICARE, OTHER ==
--- NOTE | 2019-03-26 08:58 | ED Physician Documentation ---
History of Present Illness - Stated complaint Stated Complaint: L LEG PX - Chief complaint Chief Complaint: Ext Problem - History obtained from History obtained from: Patient - History of Present Illness Timing: How many weeks ago (2) - Additonal information Additional information: This is a 73-year-old man who presents with his complaints that 2 weeks ago they went on a [place] cruise. Even before they left he had started developed some pain along his left lateral lower leg that felt similar to when he had a "pinched sciatic nerve" in the past. 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 He has a pre-standing hydrocodone prescription that he was given from his primary care provider for chronic low back pain and he is been taking the Blanco at home for this pain down the left leg but last night he took 2 of them and is just not helping. He did just take Motrin in the evenings as well and has been referred to physical therapy. Pain is now radiating up into the left outer thigh and the inner aspect of the right foot where the arch has fallen. He wonders if he might have "cracked a bone" even though he has had no specific injury. He saw his primary care provider last week they recommended Aspercreme that has not helped and also had an ultrasound done 2 days ago for a blood clot that was negative. He rates the pain at a 7-8 out of 10 but says it sitting here is not too bad but when he tries to lay down in his back or on his side it so uncomfortable he cannot sleep. He denies any dysuria, urinary or bowel incontinence, abdominal pain. He does not remember referral to a specialist in the past for his lower back spondylosis and has never had surgery. He did have an MRI of his lumbar spine about 2 years ago he is not sure where that was done at. Review of Systems Constitutional: denies: Fever GI: denies: Abdominal Pain, Nausea : denies: Dysuria, Incontinent Skin: denies: Rash Musculoskeletal: reports: Back pain, Extremity pain Neurologic: reports: Numbness (Pre-existing peripheral neuropathy). denies: Generalized weakness, Focal weakness PD PAST MEDICAL HISTORY - Past Medical History Past Medical History: Yes Cardiovascular: Hypertension, High cholesterol Respiratory: Sleep apnea, CPAP use Neuro: None Endocrine/Autoimmune: HyPOthyroidism GI: GERD, Colon polyps : Other HEENT: None Psych: Anxiety Musculoskeletal: Osteoarthritis, Chronic back pain Derm: Other - Past Surgical History Past Surgical History: Yes General: Colonoscopy, Other Ortho: Rotator cuff repair Cardiovascular: Other HEENT: Cataracts Derm: Other - Present Medications Home Medications: Ambulatory Orders Medication Instructions Recorded Confirmed Simvastatin [Zocor] 20 mg PO QPM 02/17/14 08/06/18 Tamsulosin [Flomax] 0.4 mg PO DAILY 09/25/14 08/06/18 Telmisartan [Micardis] 80 mg PO DAILY 06/21/16 08/06/18 buPROPion HCl [Bupropion HCl Sr] 150 mg PO BID 06/21/16 08/06/18 Albuterol Sulfate [Albuterol 2 puffs INH Q4H PRN 08/02/18 08/06/18 Sulfate Hfa] Doxycycline Hyclate 100 mg PO BIDWM 08/02/18 08/06/18 Niacin [Niaspan] 500 mg PO TIDWM 08/02/18 08/06/18 Pantoprazole [Protonix] 40 mg PO QDAC 08/02/18 08/06/18 Ertapenem [INVanz] 1 gm IV Q24H #14 vial 08/05/18 08/06/18 HYDROcod/ACETAM 5/325 [Blanco 5/325] 1 tab PO Q4HR PRN #40 tablet 08/05/18 08/06/18 Lactobacillus Rhamnosus GG 1 cap PO DAILY #30 capsule 08/05/18 08/06/18 [Culturelle] Levothyroxine [Synthroid] 100 mcg PO QDAC #30 tablet 08/05/18 08/06/18 Atezolizumab [Tecentriq] 1,200 mg IV Q21D 08/06/18 08/06/18 Clobetasol 0.05% Oint [Temovate 30 applic TOP DAILY PRN 08/06/18 08/06/18 0.05% Oint] Acetaminophen 650 mg PO Q6HR #30 tablet 10/25/18 Cyclobenzaprine [Flexeril] 10 mg PO TID PRN #20 tablet 10/25/18 Methylprednisolone [Medrol Dose 1 each PO .PACKAGEINSTRUCTIONS 6 03/26/19 Pack] Days #1 each - Allergies Allergies/Adverse Reactions: Allergies Allergy/AdvReac Type Severity Reaction Status Date / Time Iodinated Contrast Media Allergy Hives Verified 03/26/19 08:39 [Iodinated Contrast Media - IV Dye] LIVIA Inhibitors AdvReac Intermediate Cough Verified 03/26/19 08:39 shellfish derived AdvReac Nausea Verified 03/26/19 08:39 - Social History Does the pt smoke?: No Smoking Status: Never smoker Does the pt drink ETOH?: Yes Does the pt have substance abuse?: No - Immunizations Immunizations are current?: Yes Immunizations: TDAP >10years/unknown - POLST Patient has POLST: No PD ED PE NORMAL - Vitals Vital signs reviewed: Yes - General General: Alert and oriented X 3, No acute distress, Well developed/nourished, Other (He sitting on the exam table with his left leg stretched out in front of him and rubbing at the thigh and knee.) - HEENT HEENT: Atraumatic - Back Back: No CVA TTP, No spinal TTP, Other (There is no rash.) - Derm Derm: Normal color, Warm and dry, No rash - Extremities Extremities: No deformity, Normal ROM s pain, No edema, Other (No bruising or swelling noted of the left foot and no pain with palpation over the bony prominences including through the arch of the foot which is very flat.) - Neuro Neuro: Alert and oriented X 3, derrick worker well service 2-12 intact, No motor deficit, Normal speech, Other (Negative seated straight leg raise. He does not have reflexes at the patellar tendon or Achilles. He states that this is pre-existing. Has no sensation in the left foot which is chronic.) Results - Vitals Vitals: Vital Signs - 24 hr 03/26/19 08:35 Temperature 36.4 C L Heart Rate 92 Respiratory 16 Rate Blood Pressure 156/94 H O2 Saturation 96 Oxygen O2 Source Room air PD MEDICAL DECISION MAKING - ED course Complexity details: d/w patient, d/w family ED course: Patient was given morphine 4 mg and Phenergan 25 mg IM. Reevaluation after approximately 10 minutes he said he was not feeling any different. Lengthy discussion was held regarding the fact that this is typical for sciatic type nerve pain. Organ to do a steroid Medrol Dosepak. He was provided some positioning recommendations to try make himself more comfortable. He has a physical therapy appointment scheduled for Thursday that he should make every attempt to keep. In addition he should avoid stressing the lower back. He has hydrocodone at home that he can use for the pain and follow-up with his primary care provider as needed. Departure - Departure Disposition: Home, Self Care Clinical Impression: Sciatica of left side Condition: Good Instructions: ED Back Care Tips, ED Exercises Lumbar Muscles, ED Sciatica Follow-Up: Jaylan Caro DO [Primary Care Provider] - Prescriptions: Methylprednisolone [Medrol Dose Pack] 1 each PO .PACKAGEINSTRUCTIONS 6 Days #1 each Comments: Start the Medrol Dosepak as prescribed today. Continue with your Motrin prescription at home. May take the hydrocodone you have at home up to every 6 hours if needed for pain. If attempting to lay down on your back took a pillow underneath your knees or if on your side a pillow in between your knees to help with a alleviate some of the pressure in the lower back. Should make every effort to keep the physical therapy appointment you have scheduled on Thursday. The stretching exercises that are provided for here in our discharge instructions are appropriate for you to use now. Follow-up with your primary care provider for further pain management. Return to the emergency department if you develop leaking of urine or bowels, weakness in the left leg or are tripping on your foot when walking.
[2019-03-26] MEDS ORDERED: PROMETHAZINE 25 MG/1 ML VIAL IM STA (09:14)
[2019-03-26] MEDS ORDERED: MORPHINE 10 MG/ML VIAL IM STA (09:14)
[2019-03-26 10:07] VITALS: BP 150/89
== END 2019-03-26 10:13 | disposition home or self-care (01) ==
LOC: ED 08:25
DX: M54.42 Lumbago with sciatica, left side (principal); M21.41 Flat foot [pes planus] (acquired), right foot; G62.9 Polyneuropathy, unspecified; I10 Essential (primary) hypertension
CPT/HCPCS: 96372; 99283; 99284

== ENCOUNTER 2019-05-18 19:26 | Outpatient (CLI) | payer MEDICARE, OTHER ==
--- NOTE | 2019-05-18 21:36 | Ultrasound Report ---
Reason: LEFT LEG EDEMA Procedure Date: 05/18/2019 Accession Number: [id number] / [id number] Procedure: US - Duplex Ext Veins Left CPT Code: Final Report FULL RESULT: EXAM: LEFT LOWER EXTREMITY VENOUS ULTRASOUND EXAM DATE: 05/18/2019 08:48 PM. CLINICAL HISTORY: LEFT LEG EDEMA. COMPARISON: DUPLEX EXT VEINS LEFT 03/24/2019 4:50 PM. TECHNIQUE: Real-time sonographic vascular imaging was performed by the microstrategy architect through the lower extremity utilizing both color-flow and Doppler spectral analysis. Multiple product support sales representative static images were saved for review. FINDINGS: Common Femoral Vein (CFV): Normal. CFV-GSV Junction: Normal. Profunda Femoral Vein (PFV): Normal. Femoral Vein (FV) Prox: Normal. Femoral Vein (FV) Mid: Normal. Femoral Vein (FV) Dist: Normal. Popliteal Vein: Normal. Posterior Tibial Veins: Occlusive appearing deep venous thrombosis seen within the left posterior tibial vein proximal aspect. Peroneal Veins: Normal. Other: Superficial thrombosis seen within the varicose veins at the proximal medial calf. IMPRESSION: Occlusive appearing deep venous thrombosis seen within the left posterior tibial vein proximal aspect. Superficial thrombosis seen within the varicose veins at the proximal medial calf. RADIA The critical result notification system was initiated by Dr. Raina Carlson at 09:27 PM on 05/18/2019. The above critical result findings were discussed with Jaylan Caro by Dr. Rania Carlson at 09:29 PM on 05/18/2019.
== END 2019-05-18 19:27 | disposition home or self-care (01) ==
LOC: DI 19:26
PROVIDERS: ATTEND Family Medicine
DX: I82.442 Acute embolism and thrombosis of left tibial vein (principal); I82.812 Embolism and thrombosis of superficial veins of left lower extremity

== ENCOUNTER 2019-08-30 12:03 | Outpatient (CLI) | payer MEDICARE, OTHER | END 2019-08-30 12:04 | disposition home or self-care (01) | LOC: LAB 12:03 | PROVIDERS: ATTEND Internal Medicine | DX: Z01.818 Encounter for other preprocedural examination (principal); D50.0 Iron deficiency anemia secondary to blood loss (chronic) | CPT/HCPCS: 81599 ==

== ENCOUNTER 2019-09-06 11:50 | Outpatient (CLI) | payer MEDICARE, OTHER ==
--- NOTE | 2019-09-06 16:46 | CONSULTATION NOTE ---
Palliative Care Follow Up - Referral Referring Provider: Dr. 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 He did have a left Landeros to me with removal of the tumor, and initially received chemotherapy and radiation. He has had up to this point time a good response, with 1 residual lymph node. He is currently on atelzolizumab, this is immunotherapy, he has been on this for ongoing 3 years. He has had significant side effects of hypothyroidism as well as a severe skin lesion of bullous pemphigoid as a result. Currently this is under control, he had a PET scan in August 2018, which showed essentially stable. It did show a persistent retroperitoneal lymphadenopathy with enlarged left para-aortic lymph node, with lymph node slightly enlarged. Patient has significant back pain, was having increased symptoms on 03/28 with left lower extremity symptoms, he cannot stand greater than 30 to 60 seconds, without needing relief. He sleeps upright in a recliner because of his left leg severe pain. He has been diagnosed with multifactorial nature of his back pain, including muscular, degenerative, radicular pain most likely coming for for min imal stenosis of L5-S1. He has long-term had spondylosis. He has had intermittent PT, uses Tylenol, and recently has increased his hydrocodone to 3 tabs daily, but previously just 1 at night. Unfortunately he did not respond to epidural injections. He was very much looking forward to a laminectomy fusion at L5-S1, but unfortunately has run into multiple complications. Including a DVT in his left leg in May, for which she was placed on Xarelto. Then with COVID-19, has not been able to have his elective surgery, this is his biggest issue as far as quality of life. In the meantime patient was discovered to be severely anemic, has received 4 units total in this last week, and with his work-up on 09/01 was found to have a necrotic duodenal mass, that is ulcerated. Thought to be the source of the bleeding. Patient had been taking both Xarelto, as well as Motrin. He has been off his Xarelto for over a week now. Patient was also found to have a gastric polyp, not removed, and 2 colon polyps Removed in his colon. Patient does describe intermittent abdominal pain, a deep ache, worsening with eating, has had decreased intake, suspect also may have been adding to his back pain and may be referred pain as well, as he describes not only localized pain but a band across his back that is quite tight. Patient does find cold popsicles, or cool ice is to relieve some of his abdominal pain. Currently he is waiting in urgent referral to surgery, this will be made as soon as pathology available, to see if it is a new primary, or part of his original metastatic stage IV bladder cancer. reports there has been a persistent lymph node, that has not responded to treatment, is wondering if this is what was visualized on PET scan. Patient has been having low-grade fevers at night, normal temperatures during the day. Other findings today on exam, is he does have a area of redness and warmth on his inner right knee/popliteal space, does not have any significant swelling past this, though does have bilateral lower extremity edema. This is showed up over the last few days, did not want to bring it to his attention, as he wanted to have his scopes. It has not worsened in severity, but does appear to be most likely a clot. He is scheduled to see his PCP tomorrow related to this. Patient's past medical history includes hypertension, high cholesterol, sleep apnea with CPAP use, hypothyroidism, GERD, history of colon polyps, urothelial cancer, osteoarthritis, chronic back pain, bladder cancer, rotator cuff repair for left shoulder. Cataracts. Hernia repair with complications of wound infection. Social History - Living Situation Living arrangement: At home Living Situation: With spouse/s.o. 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 They have 3 daughters, in the [place] for over 30 years. 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 Medications/Allergies - Medications Home Medications: Ambulatory Orders Medication Instructions Recorded Confirmed Simvastatin [Zocor] 20 mg PO QPM 02/17/14 09/06/19 Tamsulosin [Flomax] 0.4 mg PO DAILY 09/25/14 09/06/19 Telmisartan [Micardis] 80 mg PO DAILY 06/21/16 09/06/19 buPROPion HCl [Bupropion HCl Sr] 150 mg PO BID 06/21/16 09/06/19 Albuterol Sulfate [Albuterol 2 puffs INH Q4H PRN 08/02/18 09/06/19 Sulfate Hfa] Niacin [Niaspan] 500 mg PO TIDWM 08/02/18 09/06/19 Pantoprazole [Protonix] 40 mg PO QDAC 08/02/18 09/06/19 Lactobacillus Rhamnosus GG 1 cap PO DAILY #30 capsule 08/05/18 09/06/19 [Culturelle] Levothyroxine [Synthroid] 100 mcg PO QDAC #30 tablet 08/05/18 09/06/19 Atezolizumab [Tecentriq] 1,200 mg IV Q21D 08/06/18 09/06/19 Clobetasol 0.05% Oint [Temovate 30 applic TOP DAILY PRN 08/06/18 09/06/19 0.05% Oint] Acetaminophen 650 mg PO Q6HR #30 tablet 10/25/18 09/06/19 Senna [Senokot] 1 - 2 tab PO BID PRN 09/06/19 09/06/19 oxyCODONE [Roxicodone] 5 - 10 mg PO QID PRN 09/06/19 09/06/19 polyethylene glycoL 3350 [Miralax] 17 gm PO DAILY 09/06/19 09/06/19 - Allergies Allergies/Adverse Reactions: Allergies Allergy/AdvReac Type Severity Reaction Status Date / Time Iodinated Contrast Media Allergy Hives Verified 03/26/19 08:39 [Iodinated Contrast Media - IV Dye] LIVIA Inhibitors AdvReac Intermediate Cough Verified 03/26/19 08:39 shellfish derived AdvReac Nausea Verified 03/26/19 08:39 Review of Systems - Constitutional Constitutional: reports: Fatigue (has noted worsening over last two months), Fever (reports fevers at night with chills), Poor appetite, Weight loss (220) - Eyes Eyes: reports: Vision loss, Corrective lenses - Ears, Nose & Throat Ears, Nose & Throat: reports: Dry mouth - Cardiovascular Cardiovascular: reports: Edema (LE), Decr. exercise tolerance - Respiratory Respiratory: reports: SOB with exertion. denies: SOB at rest - Gastrointestinal Gastrointestinal: reports: Abdominal pain, Constipation (hard stools prioir to), Nausea, Early satiety, Other (pain with eating) - Genitourinary Genitourinary: reports: Frequency - Musculoskeletal Musculoskeletal: reports: Muscle pain (left thigh), Back pain, Muscle aches, Stiffness, Limited range of motion, Muscle weakness, Joint pain (shoulder) - Integumentary Integumentary: reports: Rash (currently controlled), Dryness - Neurological Neurological: reports: General weakness, Numbness (peripheral neuropathy of numbness/balance LE chemotherapy induced not painful), Abnormal gait - Psychiatric Psychiatric: reports: Depression (currently treated does not perceive as depressed) - Endocrine Endocrine: reports: Hypothyroidism (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) - Hematologic/Lymphatic Hematologic/Lymphatic: reports: Anemia (recent blood transfusions/4 total), Blood clots (hx of DVT left leg/concern for right DVT) - All Other Systems All Other Systems: reports: Reviewed and negative Physical Exam - Vital Signs Temperature: 96.7 C Pulse Rate: 72 Respiratory Rate: 18 Blood Pressure: 114/64 - Physical Exam General Appearance: positive: Alert, Mild distress, Anxious Eyes Bilateral: positive: Normal inspection Neck: positive: Trachea midline Cardiovascular: positive: Regular rate & rhythm Respiratory: positive: No respiratory distress, Breath sounds nml Abdomen: positive: Soft, Tenderness Skin: positive: Pallor, Other (5 cm area of warm/redness tender to touch right inner knee/popliteal area) Extremities: positive: Pedal edema (lower extremity edema 1+), Other (gait very awkared and difficult; needs to stop frequently to offload for pain/weakness) Neurologic/Psychiatric: positive: Oriented x3, Mood/affect nml, Weakness, Flat a ffect Palliative Care - POLST Patient has POLST: No Pain: Pain worsening, Location (Back pain standing 8/10, sitting 4-5. Reports does get relief with offloading weight. Patient also describes increasing abdominal pain and discomfort, more pain with eating. Using hydrocodone TID with very little relief of either) Tiredness/Fatigue: Severe (7-10) Drowsiness/Sedation: Severe (7-10) Nausea: None Anorexia: Mild (1-3) Dyspnea: Mild (1-3) Depression: Mild (1-3) Anxiety: Moderate (4-6) Feelings of wellbeing/Perceived Quality of Life: Fair, Acceptable, Worsening Sleep: Sleeps poorly, Variable sleep pattern Constipation: Intermittent constipation Performance Status: Patient with declining functional status, only able to ambulate a few feet, without needing to offload for both pain and weakness. Is able to manage his ADLs, did discuss about using a quad cane, his balance is worsening, and his weakness is progressing. Unclear if this is attributed more to his anemia, but certainly is compounded by his deconditioning. He is able to manage his ADLs, though is quite sedentary. - Palliative Care Discussion: Patient's distress actually is more focused on his back pain, and worsening q uality of life related to this. He is hoping to get cleared soon to be able to have his surgery, does understand the seriousness is work-up with his duodenal mass, but seems to think that this can be dealt with easily. He has had multiple rounds of chemo, radiation, and surgeries so is no stranger to adversity. He is fairly pragmatic and does not perceive this as life threatening, though certainly in the context of his overall journey is of great concern as far as the implications for further prognosis and quality of life. Given there is no treatment plan yet, did discuss ongoing support for palliative care. Impression and Recommendations - Palliative Care Impression: This is a 74-year-old gentleman who has stage IV urethral cancer, currently receiving immunotherapy. Now presents with duodenal necrotic ulcerated mass, awaiting pathology for further treatment planning. Patient presenting with acute on chronic pain, poorly controlled. Palliative care to provide support for pain and symptom management anticipatory guidance. Recommendations/Counseling Done: 1. Acute on chronic pain. Patient has longstanding chronic back pain, which was exacerbated beginning of this year, unfortunately unable to have his surgery and has had persistent worsening pain. In the context of this unclear if his newly discovered abdominal pain is impacting this with referred pain as some of it is a band and deep into his abdomen, he is having increased pain with eating, and pain is relieved with standing. Nonetheless his pain is been poorly controlled, on most recent hydrocodone 3 times daily, unable to titrate with acetaminophen. Will switch to oxycodone, and start with oxycodone 5 mg 4 times daily, and titrate accordingly. Rx sent to [facility]. Phone call with message left to PCP regarding pain plan. 2. Constipation, opioid induced. Patient has had intermittent constipation, counseling provided regarding starting MiraLAX 17 g daily, with senna twice a day. Counseling provided regarding titrating for "mush" and "push" of medications, with goal for soft regular BM daily. 3. Duodenal mass, necrotic ulcerated. This is thought to be the source of his bleeding, unclear how acutely is bleeding. Patient did receive 4 units, currently does not have any labs scheduled, will coordinate with PCP for follow- up. Awaiting outcome of pathology, and oncology will facilitate needed next steps. Patient aware of the seriousness of the situation, could be metastatic disease and or new primary. 4. Peripheral neuropathy, chemotherapy induced. Patient does not have pain with his neuropathy, but numbness and balance problems. This is been exacerbated by his functional decline, weakness, and deconditioning. Patient would not benefit from a gabapentin/pregabalin as does not have a pain component, but would benefit from increased safety. Patient is not open to using a walker, recommended quad cane, they do report they have 1 available. 5. Right knee DVT/phlebitis. Patient currently with necrotic mass, cannot do blood thinners. Patient has bilateral lower extremity edema, but no significant swelling distal to area. Instructed this point in time to put on warm compresses, has already made an appointment to see his PCP tomorrow, is currently off his Xarelto related to his bleeding. 6. Advanced care planning. We did not address this is unclear treatment path at this time, initially did see patient last year inpatient, had gotten outpatient referral, patient had not chosen to follow-up. had reached out regarding escalating pain crisis, and concern for patient's decline and complications. Did reestablish with patient, development of rapport, will await outcome of treatment plan and continue with outpatient counseling regarding advanced care planning. Time Spent: 60 minutes with greater than 50% of this done in counseling regarding pain and symptom management, establishing of rapport, and anticipatory guidance.
== END 2019-09-06 11:51 | disposition home or self-care (01) ==
LOC: PC 11:50
PROVIDERS: ATTEND Nurse Practitioner Adult Health
DX: Z51.5 Encounter for palliative care (principal); G89.29 Other chronic pain; M47.27 Other spondylosis with radiculopathy, lumbosacral region; M48.07 Spinal stenosis, lumbosacral region; K31.89 Other diseases of stomach and duodenum; R10.9 Unspecified abdominal pain; R53.83 Other fatigue; R53.1 Weakness; R63.4 Abnormal weight loss; K59.03 Drug induced constipation; T40.2X5A Adverse effect of other opioids, initial encounter; E03.2 Hypothyroidism due to medicaments and other exogenous substances; G62.0 Drug-induced polyneuropathy; T45.1X5D Adverse effect of antineoplastic and immunosuppressive drugs, subsequent encounter; I87.9 Disorder of vein, unspecified; R60.0 Localized edema; C66.2 Malignant neoplasm of left ureter; Z79.899 Other long term (current) drug therapy; Z79.891 Long term (current) use of opiate analgesic; Z86.718 Personal history of other venous thrombosis and embolism
CPT/HCPCS: 99215

== ENCOUNTER 2019-09-07 17:20 | Outpatient (CLI) | payer MEDICARE, OTHER ==
[2019-09-07 17:37] LABS: BASOPHILS # (AUTO) 0.1 10^3/uL (0.0-0.1); BASOPHILS % (AUTO) 0.4 %; EOSINOPHILS # (AUTO) 0.3 10^3/uL (0.0-0.7); HGB - HEMOGLOBIN 7.7 g/dL (14.0-18.0); LYMPHOCYTES # (AUTO) 1.2 10^3/uL (1.5-3.5); LYMPHOCYTES % (AUTO) 8.2 %; MEAN CORPUSCULAR HEMOGLOBIN 27.7 pg (27.0-31.0); MEAN CORPUSCULAR VOLUME 92.4 fL (80.0-94.0); MEAN PLATELET VOLUME 8.2 fL (7.4-11.4); MONOCYTES # (AUTO) 1.5 10^3/uL (0.0-1.0); MONOCYTES % (AUTO) 10.9 %; NEUTROPHILS % (AUTO) 77.8 %; PLT - PLATELET COUNT 550 10^3/uL (130-450); RED BLOOD COUNT 2.78 10^6/uL (4.70-6.10); RED CELL DISTRIBUTION WIDTH 16.4 % (12.0-15.0); WHITE BLOOD COUNT 14.1 x10^3/uL (4.8-10.8)
[2019-09-07 18:05] LABS: DIFFERENTIAL COMMENT MANUAL=AUTO DIFF; PLATELET ESTIMATE, MANUAL INCREASED (>450,000) (NORMAL); PLATELET MORPHOLOGY NORMAL APPEARANCE (NORMAL)
--- NOTE | 2019-09-07 18:52 | Ultrasound Report ---
PROCEDURE: Duplex Ext Veins Right INDICATIONS: RIGHT LEG PAIN TECHNIQUE: Real-time imaging, as well as color and pulse Doppler interrogation, were performed of the lower extr emity deep veins from the inguinal ligament to the popliteal fossa. COMPARISON: None. FINDINGS: The deep veins are normally compressible, and free of intraluminal thrombus. Color and pu lse Doppler demonstrate normal phasic intraluminal flow. There is normal augmentation response to di stal compression maneuver. Nonocclusive thrombus is visualized within a superficial varicosity. IMPRESSION: 1. No deep vein thrombosis of the right lower extremity. 2. Thrombus within a superficial varicosity at the right popliteal fossa. Reviewed by: Inna Smith MD on 09/07/2019 6:51 PM PDT Approved by: Inna Smith MD on 09/07/2019 6:51 PM PDT Station ID: [id number]
== END 2019-09-07 17:21 | disposition home or self-care (01) ==
LOC: DI 17:20
PROVIDERS: ATTEND Family Medicine
DX: I82.811 Embolism and thrombosis of superficial veins of right lower extremity (principal); D64.9 Anemia, unspecified; K92.2 Gastrointestinal hemorrhage, unspecified
CPT/HCPCS: 36415; 85025

== ENCOUNTER 2019-09-26 14:12 | Outpatient (CLI) | payer MEDICARE, OTHER ==
[2019-09-26 14:36] LABS: BASOPHILS # (AUTO) 0.1 10^3/uL (0.0-0.1); BASOPHILS % (AUTO) 0.3 %; EOSINOPHILS # (AUTO) 0.2 10^3/uL (0.0-0.7); EOSINOPHILS % (AUTO) 1.3 %; HGB - HEMOGLOBIN 7.8 g/dL (14.0-18.0); LYMPHOCYTES # (AUTO) 1.1 10^3/uL (1.5-3.5); LYMPHOCYTES % (AUTO) 6.8 %; MEAN CORPUSCULAR HEMOGLOBIN 27.7 pg (27.0-31.0); MEAN CORPUSCULAR HGB CONC 30.8 g/dL (32.0-36.0); MEAN CORPUSCULAR VOLUME 89.7 fL (80.0-94.0); MEAN PLATELET VOLUME 8.3 fL (7.4-11.4); MONOCYTES # (AUTO) 1.5 10^3/uL (0.0-1.0); MONOCYTES % (AUTO) 9.6 %; NEUTROPHILS # (AUTO) 12.4 10^3/uL (1.5-6.6); NEUTROPHILS % (AUTO) 81.1 %; PLT - PLATELET COUNT 458 10^3/uL (130-450); RED BLOOD COUNT 2.82 10^6/uL (4.70-6.10); WHITE BLOOD COUNT 15.3 x10^3/uL (4.8-10.8)
== END 2019-09-26 14:13 | disposition home or self-care (01) ==
LOC: LAB 14:12
PROVIDERS: ATTEND Nurse Practitioner Adult Health
DX: D50.0 Iron deficiency anemia secondary to blood loss (chronic) (principal)
CPT/HCPCS: 36415; 85025

== ENCOUNTER 2019-10-25 11:07 | Outpatient (CLI) | payer MEDICARE, OTHER ==
--- NOTE | 2019-10-25 17:10 | CONSULTATION NOTE ---
Palliative Care Follow Up - Referral Referring Provider: Dr. Ines Caro Time of Visit: 5741-2041 Referral setting: [facility] [place] Referral Reason: Metastatic Stage IV rothelial carcinoma/Pain of neoplastic origin/anemia - Information Sources Records reviewed: Previous records reviewed History/Review of Systems obtained from: Patient, Family ( Sona) Exam limitations: No limitations - History of Present Illness Update Brief HPI Update: This is a 74-year-old gentleman with metastatic stage IV urothelial carcinoma the bladder/left ureter. Please see HPI 10/18/2019 for more extensive description. He though has known worsening disease with recent MRI, showing significant left periaortic marry mass 7.4 x 7.2 x 8 cm in dimension, which also invades into the duodenum anteriorly, with partial encasement of left proximal common iliac artery with associated stenosis and posteriorly the mass invades the L4 vertebral body with associated bone destruction. Patient also has a mass invading psoas muscular posterior laterally, and has been having worsening pain, but currently controlled with Fentanyl 25 mcg patch and intermittent oxycodone. The only limiting factor relating to his pain, as he cannot lay flat without exacerbation of the pain to 8 out of 10, and it has been limiting as far as his ability to be able to tolerate testing and pending radiation therapy. Patient is continued decline, with weight loss, weakness, he has had increased falls. He does sleep in the recliner secondary to his pain, he has had intermittent hiccups, and bleeding from his duodenal lesion. He has also continued with persistent leukocytosis, and nighttime fevers. At this time it is attributed to his disease, does not demonstrate any persistent signs or symptoms of infection, of dysuria, pulmonary/upper respiratory symptoms, or chills. Vital signs have been fairly stable. Patient is receiving transfusion for hemoglobin 7.4, he received transfusion on 09/11 and 10/03, fully his bleeding has slowed down. He at this point time is decided not to pursue radiation, with his pain currently controlled, and his declining status, does not feel the benefit outweighs the risk. Patient currently would like to continue with transfusions, discussion regarding transition to hospice at this point, or with further functional decline. We agreed to revisit at next week, but would benefit from hospice support. 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 Social History - Living Situation Living arrangement: At home Living Situation: With spouse/s.o. Support System: Patient's family has been providing increased support, he does have 3 daughters, they have been visiting on the weekends. 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 Medications/Allergies - Medications Home Medications: Ambulatory Orders Medication Instructions Recorded Confirmed Simvastatin [Zocor] 20 mg PO QPM 02/17/14 10/18/19 Tamsulosin [Flomax] 0.4 mg PO DAILY 09/25/14 10/18/19 Telmisartan [Micardis] 80 mg PO DAILY 06/21/16 10/18/19 buPROPion HCl [Bupropion HCl Sr] 150 mg PO BID 06/21/16 10/18/19 Pantoprazole [Protonix] 40 mg PO QDAC 08/02/18 10/18/19 Levothyroxine [Synthroid] 100 mcg PO QDAC #30 tablet 08/05/18 10/18/19 Senna [Senokot] 1 - 2 tab PO BID PRN 09/06/19 10/18/19 oxyCODONE [Roxicodone] 5 - 10 mg PO Q4HR PRN 09/06/19 10/18/19 polyethylene glycoL 3350 [Miralax] 17 gm PO DAILY 09/06/19 10/18/19 Biotin 1 tab PO DAILY 09/28/19 10/18/19 Calcium Carbonate/Vitamin D3 1 tab PO DAILY 09/28/19 10/18/19 [Calcium 500 mg-Vit D3 600 Unit] Mycophenolate Mofetil [Cellcept] 1,500 mg PO BID 09/28/19 10/18/19 fentaNYL [Fentanyl 25mcg patch] 25 mcg TOP .72 10/18/19 10/18/19 - Allergies Allergies/Adverse Reactions: Allergies Allergy/AdvReac Type Severity Reaction Status Date / Time Iodinated Contrast Media Allergy Hives Verified 03/26/19 08:39 [Iodinated Contrast Media - IV Dye] LIVIA Inhibitors AdvReac Intermediate Cough Verified 03/26/19 08:39 shellfish derived AdvReac Nausea Verified 03/26/19 08:39 Review of Systems - Constitutional Constitutional: reports: Fatigue, Fever (up to 101 at nights; not persistent during day), Poor appetite, Weight loss. denies: Chills - Eyes Eyes: reports: Vision loss, Corrective lenses - Ears, Nose & Throat Ears, Nose & Throat: reports: Hearing loss, Dry mouth - Cardiovascular Cardiovascular: reports: Exertional dyspnea, Decr. exercise tolerance. denies: Chest pain - Respiratory Respiratory: denies: Cough, SOB at rest, SOB with exertion - Gastrointestinal Gastrointestinal: reports: Abdominal pain (uses pepto bismal for increased discomfort with eating), Reflux/heartburn, Poor appetite, Early satiety. denies: Constipation, Nausea - Genitourinary Genitourinary: reports: Frequency - Musculoskeletal Musculoskeletal: reports: Muscle pain (left thigh), Back pain, Muscle aches, Stiffness, Limited range of motion, Muscle weakness, Joint pain, Assistive devices (using rolling walker) - Integumentary Integumentary: reports: Dryness - Neurological Neurological: reports: General weakness, Numbness, Memory problems (STM), Abnormal gait - Psychiatric Psychiatric: reports: Depression, Anxiety - Endocrine Endocrine: reports: Hypothyroidism - Hematologic/Lymphatic Hematologic/Lymphatic: reports: Anemia (receiving 2 units PRBCs), Blood clots - All Other Systems All Other Systems: reports: Reviewed and negative Physical Exam - Vital Signs Temperature: 37 C Pulse Rate: 106 Respiratory Rate: 18 Blood Pressure: 91/50 - Physical Exam General Appearance: positive: No acute distress, Alert Eyes Bilateral: positive: Normal inspection ENT: positive: No signs of dehydration Neck: positive: Trachea midline Cardiovascular: positive: Regular rate & rhythm, Tachycardia Respiratory: positive: Breath sounds nml, Diminished in bases. negative: Wheezes, Rales, Rhonchi Abdomen: positive: Soft, Tenderness Skin: positive: Pallor, Dryness Extremities: positive: Pedal edema (lower extremity edema 1+), Other (gait very awkared and difficult; needs to stop frequently to offload for pain/weakness; more slow and shuffled; using walker) Neurologic/Psychiatric: positive: Oriented x3, Weakness, Depressed mood/affect, Flat affect Palliative Care - POLST Patient has POLST: Yes POLST Status: DNR, Comfort Measures Pain: Pain unchanged, Location (lower back; left thigh), Severity (4/10) Tiredness/Fatigue: Severe (7-10) Drowsiness/Sedation: Severe (7-10) (sleeping more) Nausea: None Anorexia: Mild (1-3) Dyspnea: None Depression: None Anxiety: None Feelings of wellbeing/Perceived Quality of Life: Good, Acceptable, Worsening, Comment (patient very pragmatic in approach to care; but is more irritable and short today with ) Sleep: Sleeps well Constipation: Yes, Opoid induced, Managed Performance Status: Patient is having more trouble with both balance, lower extremity weakness. Patient has fallen 3 times over the weekend, without acute injury. Reports his legs essentially does "collapse". Unclear if this is related to his anemia, patient is at risk for cord compression, and is having overall functional and cognitive decline. I would put his PPS at a 50% - Palliative Care Discussion: Patient is quite irritable, has decided after consideration of needing to have lay flat for radiation, even though they were able to do it in 2 treatments, decided the benefit does not outweigh his concern for not being able to tolerate it or his pain. Patient's pain is currently controlled, certainly the concern is worsening cord compression, though patient is declining overall so may not be of benefit time kumar. Counseling provided regarding the hospice benefit, patient at this point time would like to continue with transfusions, as long as they are of benefit. We did discuss again could transition to hospice and way transfusions as they may or may not be of benefit in the near future. At this point will revisit next week, patient feels like they are currently coping with pain controlled, though would benefit from ongoing support. Did discuss planning today, given resource of [employer] [facility] as patient is planning on cremation. Family has been gathering, aware of the seriousness of his illness, he is hoping for more quantity, but is realistic of his current situation. aware can call at any point of concern, and transition to hospice at this time. Patient does have POLST in place with DNR/DNI and comfort measures. They did complete their D POA with his Rita as primary, and Katalina his daughter as backup. Results - Lab Results Lab results reviewed: Yes Lab and Imaging Results: Hemoglobin 7.4, hematocrit 24.2, WBC 19.4, platelets 521,000 Impression and Recommendations - Palliative Care Impression: This is a 74-year-old gentleman with metastatic stage IV urothelial carcinoma the bladder, with worsening disease burden, and sequela attributed to this. Patient at this point in time has decided not to pursue radiation, he does continue with unknown necrotic duodenal lesion, suspected to be the source of his ongoing anemia. He is receiving 2 units of packed red blood cells today, continues with leukocytosis, and pain is currently controlled. Patient is preparing to transition to hospice, palliative care providing support in the meantime. Recommendations/Counseling Done: 1. Pain of neoplastic origin. Patient currently being controlled on fentanyl 25 mcg patch. Pain is 2-3 over 10 and less lays down then it escalates to 8/10. Patient is sleeping in recliner. We did discuss can position him to comfort in hospital bed, when continues to decline and transition to hospice. Counseling provided regarding continue the oxycodone for breakthrough pain, when patient at 50 to 60 mg of oxycodone, will increase fentanyl to 50 mcg patch. Counseling provided regarding pain titration they will contact me if pain escalates. 2. Anemia secondary to blood loss. Patient receiving 2 units of packed red blood cells. Still perceives is getting benefit from this, will draw in 2 weeks, as does appear to be slowing down. Counseling provided regarding moving forward, continue to weigh benefits and burdens of transfusion support. 3. Leukocytosis. Patient with worsening WBCs, unclear underlying etiology, though attributed most likely to increasing tumor burden and necrosing tumor. Patient does have intermittent fevers at night, not persistent during the day. No other signs or symptoms of infection, did discuss weighing benefits and burdens of further follow-up, will continue to monitor. 4. Generalized weakness. Patient presents with worsening functional decline, suspect it is more attributed to her failure to thrive and tumor burden, though patient at high risk for further sequela of tumor compression and spinal cord. Patient this point in time does not want to pursue radiation, is somewhat pragmatic, and recognizes the seriousness of his situation. He currently is using walker for safety, though has had falls remains high fall risk. 5. Advanced care planning. Goal is to transition to hospice, given patient's current wish to continue transfusion weighing benefits and burdens and timing of this. Patient does want a at home, he is hoping for minimal suffering, continue to provide anticipatory guidance and education regarding hospice benefit and transition points. Patient would be appropriate at any time given is not going to pursue radiation. Time Spent: 45 minutes with greater than 50% of this done in counseling regarding goals of care, pain and symptom management, and anticipatory guidance.
== END 2019-10-25 11:08 | disposition home or self-care (01) ==
LOC: PC 11:07
PROVIDERS: ATTEND Nurse Practitioner Adult Health
DX: Z51.5 Encounter for palliative care (principal); G89.3 Neoplasm related pain (acute) (chronic); R53.0 Neoplastic (malignant) related fatigue; D50.0 Iron deficiency anemia secondary to blood loss (chronic); D72.829 Elevated white blood cell count, unspecified; R50.9 Fever, unspecified; R63.4 Abnormal weight loss; R53.1 Weakness; R29.6 Repeated falls; K59.03 Drug induced constipation; T40.2X5A Adverse effect of other opioids, initial encounter; C79.89 Secondary malignant neoplasm of other specified sites; C79.51 Secondary malignant neoplasm of bone; C78.4 Secondary malignant neoplasm of small intestine; C77.2 Secondary and unspecified malignant neoplasm of intra-abdominal lymph nodes; C67.6 Malignant neoplasm of ureteric orifice; Z79.899 Other long term (current) drug therapy; Z79.891 Long term (current) use of opiate analgesic; Z66 Do not resuscitate
CPT/HCPCS: 99215